=== PATIENT | female | born 1955 | race American Indian/Alaskan Native ===

== ENCOUNTER 2016-07-10 15:49 | Emergency (ER) | payer OTHER ==
[2016-07-10] MEDS ORDERED: NACL 0.9% 1000 ML 1,000 ML IV ONE (16:14)
[2016-07-10 16:40] LABS: Basophils % (Auto) 0.8 % (0.0-1.8); Eosinophils % (Auto) 2.9 % (0.0-4.3); Hematocrit 42.1 % (30.3-42.9); Hemoglobin 13.4 gm/dl (10.1-14.3); Mean Corpuscular HGB Conc 32 % (30-34); Mean Corpuscular Volume 79 fl (79-97); Platelet Count 178 K/mm3 (140-440); Red Blood Count 5.33 M/mm3 (3.65-5.03); Red Cell Distribution Width 13.3 % (13.2-15.2); White Blood Count 10.8 K/mm3 (4.5-11.0)
[2016-07-10 16:46] LABS: INR 2.69 (0.87-1.13)
[2016-07-10 16:47] LABS: Partial Thromboplastin Time 43.7 Sec. (24.2-36.6)
[2016-07-10 16:54] LABS: Alanine Aminotransferase 15 units/L (7-56); Albumin 3.8 g/dL (3.9-5); Alkaline Phosphatase 98 units/L (35-129); Anion Gap 20 mmol/L; BUN/Creatinine Ratio 18.33; Blood Urea Nitrogen 11 mg/dL (7-17); Calcium 9.4 mg/dL (8.4-10.2); Carbon Dioxide 24 mmol/L (22-30); Chloride 99.9 mmol/L (98-107); Glucose 127 mg/dL (65-100); Lipase 19 units/L (13-60); Mean Corpuscular Hemoglobin 25 pg (28-32); Potassium 3.5 mmol/L (3.6-5.0); Sodium 140 mmol/L (137-145); Total Protein 7.8 g/dL (6.3-8.2)
[2016-07-10 17:50] VITALS: BP 127/79
--- NOTE | 2016-07-10 18:04 | Emergency Department Report ---
HPI - General Chief Complaint: GI Bleed Time Seen by Provider: 07/10/16 17:47 - HPI HPI: This is a 60-year-old Afro-Citizen Of [place] female presents to the emergency department with a 4-5 day history of lower abdominal discomfort and possibly some black stool. The patient is on Coumadin for a previous history of stroke. She was given a stool guaiac testing car to do at home by her primary care doctor, Dr. Mancia, but she says that she "messed it up." She otherwise is not sure whether it is bleeding but she does have dark stool. 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 She also has a past medical history of CHF, hypertension, high cholesterol and has a previous surgical history of a hysterectomy. ED Past Medical Hx - Past Medical History Previous Medical History?: Yes Hx Hypertension: Yes Hx CVA: Yes (left side weakness per pt) Hx Heart Attack/AMI: No Hx Congestive Heart Failure: Yes Hx Diabetes: No Hx Deep Vein Thrombosis: (Unknown) Hx Pulmonary Embolism: No Hx GERD: No Hx Liver Disease: No Hx Renal Disease: No Hx Sickle Cell Disease: No Hx Arthritis: Yes Hx Headaches / Migraines: No Hx Seizures: No Hx Kidney Stones: No Hx Asthma: No Hx COPD: No Hx Tuberculosis: No Hx Dementia: No Hx HIV: No Additional medical history: Hypercholesterolemia - Surgical History Past Surgical History?: Yes Hx Coronary Stent: No Hx Open Heart Surgery: No Hx Pacemaker: No Hx Internal Defibrillator: No Hx Cholecystectomy: No Hx Appendectomy: No Hx Breast Surgery: No Additional Surgical History: hysterectomy - Social History Smoking Status: Former Smoker Substance Use Type: Alcohol, Prescribed - Medications Home Medications: Home Medications Medication Instructions Recorded Confirmed Last Taken Type Zolpidem Tartrate [Ambien] 10 mg PO QHS #15 tablet NS 05/06/14 07/10/16 Unknown Rx AtorvaSTATin [Lipitor] 40 mg PO QDAY 07/10/16 07/10/16 Unknown History Cyclobenzaprine HCl [Flexeril 5 MG 5 mg PO TID PRN 07/10/16 07/10/16 Unknown History TAB] Docusate Sodium [Colace CAP] 100 mg PO BID PRN 07/10/16 07/10/16 Unknown History Losartan/Hydrochlorothiazide 1 tab PO QDAY 07/10/16 07/10/16 Unknown History [Losartan-Hctz 100-25 mg Tab] Omeprazole Magnesium [PriLOSEC Otc] 20 mg PO QDAY #20 tablet. 07/10/16 Unknown Rx Quetiapine Fumarate [Seroquel] 100 mg PO QHS 07/10/16 07/10/16 Unknown History Warfarin [Coumadin] 5 mg PO TID 07/10/16 07/10/16 Unknown History amLODIPine [Norvasc] 5 mg PO QDAY 07/10/16 07/10/16 Unknown History glipiZIDE [Glucotrol] 5 mg PO QDAY 07/10/16 07/10/16 Unknown History levETIRAcetam [Keppra TAB] 500 mg PO BID 07/10/16 07/10/16 Unknown History ED Review of Systems ROS: Stated complaint: BLOOD IN STOOL/SENT BY PHYS. Other details as noted in HPI Comment: All other systems reviewed and negative Constitutional: denies: chills, fever Eyes: denies: eye pain, eye discharge, vision change ENT: denies: ear pain, throat pain Respiratory: denies: cough, shortness of breath, wheezing Cardiovascular: denies: chest pain, palpitations Gastrointestinal: abdominal pain, melena. denies: nausea, vomiting Genitourinary: denies: urgency, dysuria, discharge Musculoskeletal: denies: back pain, joint swelling, arthralgia Skin: denies: rash, lesions Neurological: denies: headache, weakness, paresthesias Physical Exam - Physical Exam Vital Signs: Vital Signs 07/10/16 07/10/16 16:08 17:49 Temperature 97.4 F L 98.4 F Pulse Rate 105 H 100 H Respiratory 20 18 Rate Blood Pressure 145/96 Blood Pressure 127/79 [Left] O2 Sat by Pulse 93 100 Oximetry Physical Exam: GENERAL: The patient is well-developed well-nourished. HEENT: Normocephalic. Atraumatic. Extraocular motions are intact. Patient has moist mucous membranes. NECK: Supple. Trachea is midline. CHEST/LUNGS: Clear to auscultation. There is no respiratory distress noted. HEART/CARDIOVASCULAR: Regular. There is no tachycardia. There is no gallop rub or murmur. ABDOMEN: Abdomen is soft, nontender. Patient has normal bowel sounds. There is no abdominal distention. Obese habitus. SKIN: Skin is warm and dry. NEURO: The patient is awake, alert, and oriented. The patient is cooperative. The patient has no focal neurologic deficits. The patient has normal speech. MUSCULOSKELETAL: There is no tenderness or deformity. There is no limitation range of motion. There is no evidence of acute injury. RECTAL: There is some nonthrombosed external hemorrhoids. No palpable internal hemorrhoids or mass. No gross blood seen. There is some dark stool but it is negative on guaiac testing. ED Course Vital Signs 07/10/16 07/10/16 16:08 17:49 Temperature 97.4 F L 98.4 F Pulse Rate 105 H 100 H Respiratory 20 18 Rate Blood Pressure 145/96 Blood Pressure 127/79 [Left] O2 Sat by Pulse 93 100 Oximetry ED Medical Decision Making - Lab Data Result diagrams: 07/10/16 16:18 07/10/16 16:18 - Radiology Data Radiology results: report reviewed CT of the abdomen and pelvis with IV contrast does not show any acute process. No intestinal or urinary tract obstruction. - Medical Decision Making 60-year-old female presents with a 4 to five-day history of dark stool. She occasionally has some lower abdominal discomfort. Labs are unremarkable. She is therapeutic with her INR. No signs of infection. Normal belly labs. Patient does not appear in any distress on physical examination. She did have some mild dark stool but it was negative on guaiac testing. Vital signs stable throughout ED course. Patient consistently asking for discharge to home. I do not see a reason why the patient would require admission at this time. She already has a wind operations manager and has been told she needs a colonoscopy but she may need an endoscopy as well. She has been encouraged to return to the ER with any worsening of her symptoms or any acute distress. - Differential Diagnosis gastritis, diverticulosis, gastric ulcer, duodenal ulcer Critical Care Time: No Critical care attestation.: If time is entered above; I have spent that time in minutes in the direct care of this critically ill patient, excluding procedure time. ED Disposition Clinical Impression: Rectal bleeding Disposition: DISCHARGED TO HOME OR SELFCARE Is pt being admited?: No Condition: Good Instructions: Rectal Bleeding (ED) Additional Instructions: Please follow-up with your wind operations manager as you may need a endoscopy or colonoscopy in the near future. Return to the emergency department with any worsening of your symptoms or any acute distress. Prescriptions: Omeprazole Magnesium [PriLOSEC Otc] 20 mg PO QDAY #20 tablet. Referrals: PRIMARY CARE, [Primary Care Provider] - 3-5 Days Time of Disposition: 21:40
--- NOTE | 2016-07-10 21:17 | Cat Scan Report ---
FINAL REPORT EXAM: CT ABDOMEN PELVIS W CON HISTORY: Abd Pain TECHNIQUE: CT abdomen and pelvis with intravenous contrast PRIORS: None. FINDINGS: No acute abnormality identified in the lung bases. No focal abnormality identified within the liver parenchyma. The spleen demonstrates normal size and attenuation. No pancreatic abnormalities seen. The kidneys demonstrate symmetric contrast enhancement. No evidence of hydronephrosis. The adrenal glands are unremarkable Abdominal aorta is normal in caliber. No pathologically enlarged lymph nodes are identified. No signs of free fluid or free air No evidence of small bowel dilatation. Colon is nondistended. No pericolonic inflammatory change. The appendix is not definitively identified there are no acute inflammatory changes in right lower quadrant. Urinary bladder is unremarkable. IMPRESSION: Negative. No acute abnormalities seen
== END 2016-07-10 22:12 | disposition home or self-care (01) ==
LOC: ED 15:49
DX: K62.5 Hemorrhage of anus and rectum (principal); I10 Essential (primary) hypertension; I50.9 Heart failure, unspecified
CPT/HCPCS: 36415; 74177; 80053; 83690; 85025; 85610; 85730; 86850; 86900; 86901; 93005; 93010; 96360; 96361; 99284; J7030; Q9967

== ENCOUNTER 2016-07-19 14:53 | Emergency (ER) | payer OTHER ==
[2016-07-19 15:33] VITALS: BP 108/81
[2016-07-19] MEDS ORDERED: NORCO 5/325 PO ONE (17:18)
--- NOTE | 2016-07-19 18:20 | Emergency Department Report ---
Entered by BREN FRY, acting as scribe for TRISTA ORDONEZ NP. ED Lower Extremity HPI - General Chief Complaint: Extremity Injury, Lower Stated Complaint: PAIN IN BOTH LEGS Time Seen by Provider: 07/19/16 16:56 Source: patient Mode of arrival: Wheelchair Limitations: No Limitations - History of Present Illness Initial Comments: 60 y/o female with PMHx of arthritis, CHF, CVA, DVT, and HTN, presents to the ED c/o chronic bilateral leg pain. Associated symptoms include leg pain but she denies fever and chills. Patient states she has bone on bone and that she was getting steroid shots in the knees previously. Denies fall or injury. No aggravating factors and no alleviating despite taking flexeril. NKDA. ALAMO Complaint: leg injury Injury: Leg: Left, Right, Knee: Right, Left (mostly on righ knee) Place: home Severity: mild Improves With: nothing Worsens With: nothing Associated Symptoms: other (leg pain and knee pain but bi fever and no chills ) - Related Data Home Medications Medication Instructions Recorded Confirmed Last Taken AtorvaSTATin [Lipitor] 40 mg PO QDAY 07/10/16 07/10/16 Unknown Cyclobenzaprine HCl [Flexeril 5 MG 5 mg PO TID PRN 07/10/16 07/10/16 Unknown TAB] Docusate Sodium [Colace CAP] 100 mg PO BID PRN 07/10/16 07/10/16 Unknown Losartan/Hydrochlorothiazide 1 tab PO QDAY 07/10/16 07/10/16 Unknown [Losartan-Hctz 100-25 mg Tab] Quetiapine Fumarate [Seroquel] 100 mg PO QHS 07/10/16 07/10/16 Unknown Warfarin [Coumadin] 5 mg PO TID 07/10/16 07/10/16 Unknown amLODIPine [Norvasc] 5 mg PO QDAY 07/10/16 07/10/16 Unknown glipiZIDE [Glucotrol] 5 mg PO QDAY 07/10/16 07/10/16 Unknown levETIRAcetam [Keppra TAB] 500 mg PO BID 07/10/16 07/10/16 Unknown Previous Rx's Medication Instructions Recorded Last Taken Type Zolpidem Tartrate [Ambien] 10 mg PO QHS #15 tablet NS 05/06/14 Unknown Rx Omeprazole Magnesium [PriLOSEC Otc] 20 mg PO QDAY #20 tablet. 07/10/16 Unknown Rx Acetaminophen/Codeine [Tylenol 1 tab PO Q8HR PRN #30 tab 07/19/16 Unknown Rx /Codeine # 3 tab] Diclofenac Sodium [Voltaren] 100 gm TP TID PRN #1 tube 07/19/16 Unknown Rx Allergies Allergy/AdvReac Type Severity Reaction Status Date / Time No Known Allergies Allergy Verified 08/04/15 19:13 ED Review of Systems Comment: All other systems reviewed and negative Constitutional: denies: chills, fever Musculoskeletal: other (knee pain and leg pain) ED Past Medical Hx - Past Medical History Hx Hypertension: Yes Hx CVA: Yes (left side weakness per pt) Hx Heart Attack/AMI: No Hx Congestive Heart Failure: Yes Hx Diabetes: No Hx Deep Vein Thrombosis: (Unknown) Hx Pulmonary Embolism: No Hx GERD: No Hx Liver Disease: No Hx Renal Disease: No Hx Sickle Cell Disease: No Hx Arthritis: Yes Hx Headaches / Migraines: No Hx Seizures: No Hx Kidney Stones: No Hx Asthma: No Hx COPD: No Hx Tuberculosis: No Hx Dementia: No Hx HIV: No Additional medical history: Hypercholesterolemia. chronic knee pain - Surgical History Past Surgical History?: Yes Hx Coronary Stent: No Hx Open Heart Surgery: No Hx Pacemaker: No Hx Internal Defibrillator: No Hx Cholecystectomy: No Hx Appendectomy: No Hx Breast Surgery: No Additional Surgical History: hysterectomy - Social History Smoking Status: Never Smoker Substance Use Type: None - Medications Home Medications: Home Medications Medication Instructions Recorded Confirmed Last Taken Type Zolpidem Tartrate [Ambien] 10 mg PO QHS #15 tablet NS 05/06/14 07/10/16 Unknown Rx AtorvaSTATin [Lipitor] 40 mg PO QDAY 07/10/16 07/10/16 Unknown History Cyclobenzaprine HCl [Flexeril 5 MG 5 mg PO TID PRN 07/10/16 07/10/16 Unknown History TAB] Docusate Sodium [Colace CAP] 100 mg PO BID PRN 07/10/16 07/10/16 Unknown History Losartan/Hydrochlorothiazide 1 tab PO QDAY 07/10/16 07/10/16 Unknown History [Losartan-Hctz 100-25 mg Tab] Omeprazole Magnesium [PriLOSEC Otc] 20 mg PO QDAY #20 tablet. 07/10/16 Unknown Rx Quetiapine Fumarate [Seroquel] 100 mg PO QHS 07/10/16 07/10/16 Unknown History Warfarin [Coumadin] 5 mg PO TID 07/10/16 07/10/16 Unknown History amLODIPine [Norvasc] 5 mg PO QDAY 07/10/16 07/10/16 Unknown History glipiZIDE [Glucotrol] 5 mg PO QDAY 07/10/16 07/10/16 Unknown History levETIRAcetam [Keppra TAB] 500 mg PO BID 07/10/16 07/10/16 Unknown History Acetaminophen/Codeine [Tylenol 1 tab PO Q8HR PRN #30 tab 07/19/16 Unknown Rx /Codeine # 3 tab] Diclofenac Sodium [Voltaren] 100 gm TP TID PRN #1 tube 07/19/16 Unknown Rx ED Physical Exam - General Limitations: No Limitations General appearance: alert, in no apparent distress - Head Head exam: Present: atraumatic, normocephalic, normal inspection - Eye Eye exam: Present: normal appearance, EOMI Pupils: Present: normal accommodation - ENT ENT exam: Present: normal exam - Neck Neck exam: Present: normal inspection, full ROM - Respiratory Respiratory exam: Present: normal lung sounds bilaterally. Absent: wheezes, rales, rhonchi - Cardiovascular Cardiovascular Exam: Present: regular rate, normal rhythm, normal heart sounds. Absent: rubs, gallop - GI/Abdominal GI/Abdominal exam: Present: soft, normal bowel sounds. Absent: tenderness, guarding, rebound - Expanded Lower Extremity Exam Right Knee exam: Present: pain w/ pronation/supination, full knee extension. Absent: tenderness, swelling, abrasion, laceration, ecchymosis, deformity, crepidus, dislocation, erythema, effusion, posterior draw sign Neuro vascular tendon exam: Absent: pulse deficit, abnormal cap refill, motor deficit, sensory deficit, tendon deficit, pallor Gait: Positive: observed and limited by pain - Back Exam Back exam: Present: normal inspection, full ROM - Neurological Exam Neurological exam: Present: alert, oriented X3 - Psychiatric Psychiatric exam: Present: normal affect, normal mood - Skin Skin exam: Present: warm, dry, intact ED Course Vital Signs 07/19/16 07/19/16 15:29 17:21 Temperature 97.7 F Pulse Rate 102 H Respiratory 18 16 Rate Blood Pressure 108/81 O2 Sat by Pulse 95 Oximetry ED Lower Extremity MDM - Medical Decision Making pt is a 60 y/o aaf with hx of chronic bilat knee pain , pt denies fall injury or trauma , pt requesting referral to orthopedics for evaluatoin and second opinion on knee condition or need for replacement , pt currently complaining of 5/10 bilat knee aching exacerbated by prolonged ambulation or standing, pain is improved with off loading ,exam: no erythema no edema no click no pop no catch no drawers bilat, knee joints are stable, v/s noted upon arrival to [facility] , now hr 87, 129/86, pt advises pain easing up from 5/10 to 3/10 at this time , pt is ambulatory gait remains steady with minimal limp to base line for this patient will refer to ortho Dr. Carrasquillo pt verbalized understanding and agreement with discharge plan. ED Disposition Clinical Impression: Chronic pain of both knees, Arthralgia Disposition: TO HOME OR SELFCARE Is pt being admited?: No Does the pt Need Aspirin: No Condition: Good Instructions: Arthralgia (ED), Knee Exercises (GEN) Prescriptions: Acetaminophen/Codeine [Tylenol /Codeine # 3 tab] 1 tab PO Q8HR PRN #30 tab PRN Reason: Pain Diclofenac Sodium [Voltaren] 100 gm TP TID PRN #1 tube PRN Reason: Pain Referrals: PRIMARY CAREMD [Primary Care Provider] - 3-5 Days SHAHIDA CARRASQUILLO MD [Staff Physician] - 3-5 Days Forms: Work/School Release Form(ED) Time of Disposition: 18:20 This documentation as recorded by the LISANDRA aguila ELIZABETH,accurately reflects the service I personally performed and the decisions made by me, TRISTA ORDONEZ, ABHI.
== END 2016-07-19 18:25 | disposition home or self-care (01) ==
LOC: ED 14:53
DX: M25.561 Pain in right knee (principal); M25.562 Pain in left knee; G89.29 Other chronic pain; I10 Essential (primary) hypertension; I63.9 Cerebral infarction, unspecified; I50.9 Heart failure, unspecified; M19.90 Unspecified osteoarthritis, unspecified site; E78.00 Pure hypercholesterolemia, unspecified; Z79.01 Long term (current) use of anticoagulants
CPT/HCPCS: 99283

== ENCOUNTER 2016-07-21 09:00 | Emergency (ER) | payer OTHER ==
[2016-07-21 09:31] VITALS: BP 94/66
[2016-07-21 10:10] LABS: Basophils % (Auto) 0.7 % (0.0-1.8); Eosinophils % (Auto) 3.1 % (0.0-4.3); Hematocrit 42.8 % (30.3-42.9); Hemoglobin 13.7 gm/dl (10.1-14.3); Mean Corpuscular HGB Conc 32 % (30-34); Mean Corpuscular Volume 80 fl (79-97); Red Blood Count 5.36 M/mm3 (3.65-5.03); Red Cell Distribution Width 13.7 % (13.2-15.2); White Blood Count 9.6 K/mm3 (4.5-11.0)
[2016-07-21 10:12] LABS: Mean Corpuscular Hemoglobin 26 pg (28-32)
[2016-07-21 10:18] LABS: INR 1.9 (0.87-1.13)
[2016-07-21 10:19] LABS: Partial Thromboplastin Time 38.4 Sec. (24.2-36.6)
--- NOTE | 2016-07-21 10:19 | Cat Scan Report ---
CT HEAD WITHOUT CONTRAST: HISTORY: Stroke. Moderate to large chronic infarct in the right parietal and posterior temporal lobes is unchanged since 09/04/15. Mild volume loss and moderate chronic ischemic changes in the white matter and all are unchanged. No large area of acute ischemia, hemorrhage, mass or extra axial fluid collection is identified on noncontrast CT. Ventricular size is within normal limits. The posterior fossa is unremarkable. The mastoid air cells and visualized portions of the sinuses are normal. IMPRESSION: No acute intracranial process is appreciated. Chronic findings as outlined above.
[2016-07-21 10:20] LABS: Platelet Count 150 K/mm3 (140-440)
[2016-07-21 11:03] LABS: Alanine Aminotransferase 20 units/L (7-56); Albumin 3.7 g/dL (3.9-5); Albumin/Globulin Ratio 0.9 %; Alkaline Phosphatase 115 units/L (35-129); Anion Gap 18 mmol/L; BUN/Creatinine Ratio 15.71; Blood Urea Nitrogen 11 mg/dL (7-17); Calcium 9.5 mg/dL (8.4-10.2); Carbon Dioxide 24 mmol/L (22-30); Glucose 124 mg/dL (65-100); Potassium 4.1 mmol/L (3.6-5.0); Sodium 139 mmol/L (137-145); Total Protein 7.8 g/dL (6.3-8.2)
[2016-07-21 11:05] LABS: Creatine Kinase 50 units/L (30-135)
[2016-07-21 11:19] LABS: Creatine Kinase MB < 1.0 ng/mL (0.0-4.0)
[2016-07-21 11:59] LABS: Bilirubin,Urine NEG (Negative); Blood,Urine NEG (Negative); Ketones,Urine NEG (Negative); Leukocyte Esterase,Urine NEG (Negative); Mucus,Urine FEW /HPF; Nitrite,Urine NEG (Negative); Protein,Urine <15 mg/dL mg/dL (Negative); Urobilinogen,Urine < 2.0 mg/dL (<2.0)
--- NOTE | 2016-07-21 12:14 | History and Physical Report ---
Medications and Allergies Allergies Allergy/AdvReac Type Severity Reaction Status Date / Time No Known Allergies Allergy Verified 07/21/16 09:31 Home Medications Medication Instructions Recorded Confirmed Last Taken Type Zolpidem Tartrate [Ambien] 10 mg PO QHS #15 tablet NS 05/06/14 07/10/16 Unknown Rx AtorvaSTATin [Lipitor] 40 mg PO QDAY 07/10/16 07/10/16 Unknown History Cyclobenzaprine HCl [Flexeril 5 MG 5 mg PO TID PRN 07/10/16 07/10/16 Unknown History TAB] Docusate Sodium [Colace CAP] 100 mg PO BID PRN 07/10/16 07/10/16 Unknown History Losartan/Hydrochlorothiazide 1 tab PO QDAY 07/10/16 07/10/16 Unknown History [Losartan-Hctz 100-25 mg Tab] Omeprazole Magnesium [PriLOSEC Otc] 20 mg PO QDAY #20 tablet. 07/10/16 Unknown Rx Quetiapine Fumarate [Seroquel] 100 mg PO QHS 07/10/16 07/10/16 Unknown History Warfarin [Coumadin] 5 mg PO TID 07/10/16 07/10/16 Unknown History amLODIPine [Norvasc] 5 mg PO QDAY 07/10/16 07/10/16 Unknown History glipiZIDE [Glucotrol] 5 mg PO QDAY 07/10/16 07/10/16 Unknown History levETIRAcetam [Keppra TAB] 500 mg PO BID 07/10/16 07/10/16 Unknown History Acetaminophen/Codeine [Tylenol 1 tab PO Q8HR PRN #30 tab 07/19/16 Unknown Rx /Codeine # 3 tab] Diclofenac Sodium [Voltaren] 100 gm TP TID PRN #1 tube 07/19/16 Unknown Rx Exam - Constitutional Vitals: Temp Pulse Resp BP Pulse Ox 98.1 F 93 H 28 H 94/66 98 07/21/16 09:00 07/21/16 09:00 07/21/16 09:00 07/21/16 09:00 07/21/16 10:08 Results - Labs CBC & Chem 7: 07/21/16 09:48 07/21/16 09:48 Labs: Abnormal lab results 07/21/16 07/21/16 07/21/16 Range/Units 09:48 09:48 09:48 RBC 5.36 H (3.65-5.03) M/mm3 MCH 26 L (28-32) pg [place] % (Auto) 8.3 H (0.0-7.3) % PT 21.8 H (12.2-14.9) Sec. INR 1.90 H (0.87-1.13) APTT 38.4 H (24.2-36.6) Sec. Glucose 124 H (65-100) mg/dL Albumin 3.7 L (3.9-5) g/dL
--- NOTE | 2016-07-21 12:59 | Emergency Department Report ---
ED General Adult HPI - General Chief complaint: Neuro Symptoms/Deficit Stated complaint: POSS STROKE Time Seen by Provider: 07/21/16 09:40 Source: patient Mode of arrival: Stretcher Limitations: No Limitations - History of Present Illness Initial comments: The patient presents via private vehicle for evaluation of headache, chest pain after she states that she felt like she was going to pass out at jainism. She states that she did not fall and did not hurt herself. She told triage she is having some left sided chest pain intermittently recently but this has not related to her event today. Initially she stated her chief complaint was a right sided headache associated with the concern about stroke. She states that she had a stroke in 2013 which was associated with a headache. She was actually admitted here in August 2015. At that time the patient's MRI showed chronic ischemia in the right posterior temporal region and small vessel disease. Patient denied any focal weakness or numbness. She stated that she was having some difficulty with speech today however. She doesn't describe any difficulty with her coordination or gait. She denied any change in vision. -: Gradual Location: head Radiation: non-radiation Quality: aching Consistency: intermittent, now resolved Improves with: none Worsens with: none Associated Symptoms: chest pain, other (headache and presyncopal episode) - Related Data Home Medications Medication Instructions Recorded Confirmed Last Taken AtorvaSTATin [Lipitor] 40 mg PO QDAY 07/10/16 07/10/16 Unknown Cyclobenzaprine HCl [Flexeril 5 MG 5 mg PO TID PRN 07/10/16 07/10/16 Unknown TAB] Docusate Sodium [Colace CAP] 100 mg PO BID PRN 07/10/16 07/10/16 Unknown Losartan/Hydrochlorothiazide 1 tab PO QDAY 07/10/16 07/10/16 Unknown [Losartan-Hctz 100-25 mg Tab] Quetiapine Fumarate [Seroquel] 100 mg PO QHS 07/10/16 07/10/16 Unknown Warfarin [Coumadin] 5 mg PO TID 07/10/16 07/10/16 Unknown amLODIPine [Norvasc] 5 mg PO QDAY 07/10/16 07/10/16 Unknown glipiZIDE [Glucotrol] 5 mg PO QDAY 07/10/16 07/10/16 Unknown levETIRAcetam [Keppra TAB] 500 mg PO BID 07/10/16 07/10/16 Unknown Previous Rx's Medication Instructions Recorded Last Taken Type Zolpidem Tartrate [Ambien] 10 mg PO QHS #15 tablet NS 05/06/14 Unknown Rx Omeprazole Magnesium [PriLOSEC Otc] 20 mg PO QDAY #20 tablet. 07/10/16 Unknown Rx Acetaminophen/Codeine [Tylenol 1 tab PO Q8HR PRN #30 tab 07/19/16 Unknown Rx /Codeine # 3 tab] Diclofenac Sodium [Voltaren] 100 gm TP TID PRN #1 tube 07/19/16 Unknown Rx Allergies Allergy/AdvReac Type Severity Reaction Status Date / Time No Known Allergies Allergy Verified 07/21/16 09:31 ED Review of Systems ROS: Stated complaint: POSS STROKE Other details as noted in HPI ED Past Medical Hx - Past Medical History Hx Hypertension: Yes Hx CVA: Yes (left side weakness per pt) Hx Heart Attack/AMI: No Hx Congestive Heart Failure: Yes Hx Diabetes: No Hx Deep Vein Thrombosis: (Unknown) Hx Pulmonary Embolism: No Hx GERD: No Hx Liver Disease: No Hx Renal Disease: No Hx Sickle Cell Disease: No Hx Arthritis: Yes Hx Headaches / Migraines: No Hx Seizures: No Hx Kidney Stones: No Hx Asthma: No Hx COPD: No Hx Tuberculosis: No Hx Dementia: No Hx HIV: No Additional medical history: Hypercholesterolemia. chronic knee pain - Surgical History Hx Coronary Stent: No Hx Open Heart Surgery: No Hx Pacemaker: No Hx Internal Defibrillator: No Hx Cholecystectomy: No Hx Appendectomy: No Hx Breast Surgery: No Additional Surgical History: hysterectomy - Social History Smoking Status: Never Smoker Substance Use Type: None - Medications Home Medications: Home Medications Medication Instructions Recorded Confirmed Last Taken Type Zolpidem Tartrate [Ambien] 10 mg PO QHS #15 tablet NS 05/06/14 07/10/16 Unknown Rx AtorvaSTATin [Lipitor] 40 mg PO QDAY 07/10/16 07/10/16 Unknown History Cyclobenzaprine HCl [Flexeril 5 MG 5 mg PO TID PRN 07/10/16 07/10/16 Unknown History TAB] Docusate Sodium [Colace CAP] 100 mg PO BID PRN 07/10/16 07/10/16 Unknown History Losartan/Hydrochlorothiazide 1 tab PO QDAY 07/10/16 07/10/16 Unknown History [Losartan-Hctz 100-25 mg Tab] Omeprazole Magnesium [PriLOSEC Otc] 20 mg PO QDAY #20 tablet. 07/10/16 Unknown Rx Quetiapine Fumarate [Seroquel] 100 mg PO QHS 07/10/16 07/10/16 Unknown History Warfarin [Coumadin] 5 mg PO TID 07/10/16 07/10/16 Unknown History amLODIPine [Norvasc] 5 mg PO QDAY 07/10/16 07/10/16 Unknown History glipiZIDE [Glucotrol] 5 mg PO QDAY 07/10/16 07/10/16 Unknown History levETIRAcetam [Keppra TAB] 500 mg PO BID 07/10/16 07/10/16 Unknown History Acetaminophen/Codeine [Tylenol 1 tab PO Q8HR PRN #30 tab 07/19/16 Unknown Rx /Codeine # 3 tab] Diclofenac Sodium [Voltaren] 100 gm TP TID PRN #1 tube 07/19/16 Unknown Rx ED Physical Exam - General Limitations: No Limitations General appearance: alert, in no apparent distress - Head Head exam: Present: atraumatic, normocephalic - Eye Eye exam: Present: normal appearance, PERRL, EOMI. Absent: scleral icterus - ENT ENT exam: Present: mucous membranes moist - Neck Neck exam: Present: normal inspection, other (carotids without bruit). Absent: tenderness, meningismus - Respiratory Respiratory exam: Present: normal lung sounds bilaterally. Absent: respiratory distress - Cardiovascular Cardiovascular Exam: Present: regular rate, normal rhythm. Absent: systolic murmur, diastolic murmur, rubs, gallop - GI/Abdominal GI/Abdominal exam: Present: soft, normal bowel sounds. Absent: distended, tenderness, guarding, rebound, rigid - Extremities Exam Extremities exam: Present: normal inspection, full ROM, normal capillary refill. Absent: tenderness, pedal edema, joint swelling, calf tenderness - Back Exam Back exam: Present: normal inspection - Neurological Exam Neurological exam: Present: alert, oriented X3, CN II-XII intact, normal gait, other (patient's patient was a bit stuttering but did not seem to be otherwise dysarthric. There was no aphasia.). Absent: motor sensory deficit - Psychiatric Psychiatric exam: Present: anxious, flat affect - Skin Skin exam: Present: warm, dry, intact, normal color. Absent: rash ED Course Vital Signs 07/21/16 07/21/16 09:00 10:08 Temperature 98.1 F Pulse Rate 93 H Respiratory 28 H Rate Blood Pressure 94/66 Blood Pressure 94/66 [Left] O2 Sat by Pulse 98 98 Oximetry - Reevaluation(s) Reevaluation #1: The patient was referred to Dr. Traylor. He did see and examine the patient. He told the patient that he would admit her to the hospital for further care and evaluation. However, later we were informed that the patient eloped without informing the nurse or physician. 07/21/16 14:34 ED Medical Decision Making - Lab Data Result diagrams: 07/21/16 09:48 07/21/16 09:48 Laboratory Results - last 24 hr 07/21/16 07/21/16 07/21/16 09:48 09:48 09:48 WBC 9.6 RBC 5.36 H Hgb 13.7 Hct 42.8 MCV 80 MCH 26 L MCHC 32 RDW 13.7 Plt Count 150 Lymph % (Auto) 25.2 [place] % (Auto) 8.3 H Eos % (Auto) 3.1 Baso % (Auto) 0.7 Lymph # 2.4 [place] # 0.8 Eos # 0.3 Baso # 0.1 Seg Neutrophils % 62.7 Seg Neutrophils # 6.0 PT 21.8 H INR 1.90 H APTT 38.4 H Thrombin Time 18.9 Sodium Potassium Chloride Carbon Dioxide Anion Gap BUN Creatinine Estimated GFR BUN/Creatinine Ratio Glucose Calcium Total Bilirubin AST ALT Alkaline Phosphatase Total Creatine Kinase 50 CK-MB (CK-2) < 1.0 CK-MB (CK-2) Rel Index 2.0 Troponin T < 0.010 Total Protein Albumin Albumin/Globulin Ratio Urine Color Urine Turbidity Urine pH Ur Specific [place] Urine Protein Urine Glucose (UA) Urine Ketones Urine Blood Urine Nitrite Urine Bilirubin Urine Urobilinogen Ur Leukocyte Esterase Urine WBC (Auto) Urine RBC (Auto) U Epithel Cells (Auto) Urine Mucus 07/21/16 07/21/16 09:48 11:18 WBC RBC Hgb Hct MCV MCH MCHC RDW Plt Count Lymph % (Auto) [place] % (Auto) Eos % (Auto) Baso % (Auto) Lymph # [place] # Eos # Baso # Seg Neutrophils % Seg Neutrophils # PT INR APTT Thrombin Time Sodium 139 Potassium 4.1 Chloride 101.0 Carbon Dioxide 24 Anion Gap 18 BUN 11 Creatinine 0.7 Estimated GFR > 60 BUN/Creatinine Ratio 15.71 Glucose 124 H Calcium 9.5 Total Bilirubin 0.20 AST 23 ALT 20 Alkaline Phosphatase 115 Total Creatine Kinase CK-MB (CK-2) CK-MB (CK-2) Rel Index Troponin T Total Protein 7.8 Albumin 3.7 L Albumin/Globulin Ratio 0.9 Urine Color Yellow Urine Turbidity Clear Urine pH 6.0 Ur Specific [place] 1.013 Urine Protein <15 mg/dl Urine Glucose (UA) Neg Urine Ketones Neg Urine Blood Neg Urine Nitrite Neg Urine Bilirubin Neg Urine Urobilinogen < 2.0 Ur Leukocyte Esterase Neg Urine WBC (Auto) 1.0 Urine RBC (Auto) 1.0 U Epithel Cells (Auto) 2.0 Urine Mucus Few - EKG Data -: EKG Interpreted by Me EKG shows normal: sinus rhythm, axis, intervals, QRS complexes, ST-T waves - EKG Data Interpretation: other (one fusion beat noted) - Radiology Data Radiology results: report reviewed interpreted by me: CT the head showed chronic changes only no acute intracranial process. Critical care attestation.: If time is entered above; I have spent that time in minutes in the direct care of this critically ill patient, excluding procedure time. ED Disposition Clinical Impression: Pre-syncope Headache Qualifiers: Headache type: unspecified Headache chronicity pattern: unspecified pattern Intractability: not intractable Qualified Code(s): R51 - Headache Chest pain Qualifiers: Chest pain type: unspecified Qualified Code(s): R07.9 - Chest pain, unspecified Disposition: ELOPED Is pt being admited?: Yes Does the pt Need Aspirin: Yes Condition: Stable Instructions: Chest Pain (ED) Referrals: PRIMARY CARE, [Primary Care Provider] - 3-5 Days Time of Disposition: 12:34
--- NOTE | 2016-07-21 14:05 | Consultation ---
History of Present Illness - Reason for Consult Consult date: 07/21/16 Requesting physician: DIANA GALDAMEZ - History of Present Illness 60 YO Female with CVA, CHF, OA, HLD presents to ED for evaluation. Pt states that she feels weak all over. Pt does not provide consistent history. Pt acknowledges chest pain, shortness of breath, leg pain, neck pain, shoulder pain , dizziness, and nearly passing out while in nondenominational this morning. Pt unable to provide detail regarding onset, duration, and quality of her symptoms. Pt seen and evaluated in ED, but pt eloped prior to initiation and completion of workup. Past History Past Medical History: heart failure, hypertension, hyperlipidemia, stroke Past Surgical History: hysterectomy Social history: . denies: smoking, alcohol abuse Family history: diabetes, hypertension Medications and Allergies Allergies Allergy/AdvReac Type Severity Reaction Status Date / Time No Known Allergies Allergy Verified 07/21/16 09:31 Home Medications Medication Instructions Recorded Confirmed Last Taken Type Zolpidem Tartrate [Ambien] 10 mg PO QHS #15 tablet NS 05/06/14 07/10/16 Unknown Rx AtorvaSTATin [Lipitor] 40 mg PO QDAY 07/10/16 07/10/16 Unknown History Cyclobenzaprine HCl [Flexeril 5 MG 5 mg PO TID PRN 07/10/16 07/10/16 Unknown History TAB] Docusate Sodium [Colace CAP] 100 mg PO BID PRN 07/10/16 07/10/16 Unknown History Losartan/Hydrochlorothiazide 1 tab PO QDAY 07/10/16 07/10/16 Unknown History [Losartan-Hctz 100-25 mg Tab] Omeprazole Magnesium [PriLOSEC Otc] 20 mg PO QDAY #20 tablet. 07/10/16 Unknown Rx Quetiapine Fumarate [Seroquel] 100 mg PO QHS 07/10/16 07/10/16 Unknown History Warfarin [Coumadin] 5 mg PO TID 07/10/16 07/10/16 Unknown History amLODIPine [Norvasc] 5 mg PO QDAY 07/10/16 07/10/16 Unknown History glipiZIDE [Glucotrol] 5 mg PO QDAY 07/10/16 07/10/16 Unknown History levETIRAcetam [Keppra TAB] 500 mg PO BID 07/10/16 07/10/16 Unknown History Acetaminophen/Codeine [Tylenol 1 tab PO Q8HR PRN #30 tab 07/19/16 Unknown Rx /Codeine # 3 tab] Diclofenac Sodium [Voltaren] 100 gm TP TID PRN #1 tube 07/19/16 Unknown Rx Review of Systems All systems: negative Constitutional: weakness, chronic pain Cardiovascular: chest pain Exam - Constitutional Vitals: Temp Pulse Resp BP Pulse Ox 98.1 F 93 H 28 H 94/66 98 07/21/16 09:00 07/21/16 09:00 07/21/16 09:00 07/21/16 09:00 07/21/16 10:08 General appearance: Present: obese - EENT Eyes: Present: PERRL ENT: hearing intact, clear oral mucosa - Neck Neck: Present: supple, normal ROM - Respiratory Respiratory effort: normal Respiratory: bilateral: CTA - Cardiovascular Heart Sounds: Present: S1 & S2. Absent: rub, click - Extremities Extremities: pulses symmetrical, No edema Peripheral Pulses: within normal limits - Abdominal General gastrointestinal: Present: soft, non-tender, non-distended, normal bowel sounds Female genitourinary: Present: normal - Integumentary Integumentary: Present: clear, warm, dry - Musculoskeletal Musculoskeletal: gait normal, strength equal bilaterally - Psychiatric Psychiatric: appropriate mood/affect, intact judgment & insight - Neurologic Neurologic: CNII-XII intact, moves all extremities Results - Labs CBC & Chem 7: 07/21/16 09:48 07/21/16 09:48 Labs: Abnormal lab results 07/21/16 07/21/16 07/21/16 Range/Units 09:48 09:48 09:48 RBC 5.36 H (3.65-5.03) M/mm3 MCH 26 L (28-32) pg [place] % (Auto) 8.3 H (0.0-7.3) % PT 21.8 H (12.2-14.9) Sec. INR 1.90 H (0.87-1.13) APTT 38.4 H (24.2-36.6) Sec. Glucose 124 H (65-100) mg/dL Albumin 3.7 L (3.9-5) g/dL Assessment and Plan - Patient Problems (1) Atypical chest pain Current Visit: Yes Status: Acute Plan to address problem: Pt left eloped prior to workup completion (2) CHF (congestive heart failure) Current Visit: Yes Status: Chronic Qualifiers: Congestive heart failure type: C Congestive heart failure chronicity: C Plan to address problem: Pt eloped (3) Obesity Current Visit: Yes Status: Acute Qualifiers: Obesity type: O Obesity severity: O Plan to address problem: Pt counseled, (4) DVT prophylaxis Current Visit: Yes Status: Acute
[2016-07-21] MEDS ORDERED: BABY ASPIRIN PO ONE (14:36)
== END 2016-07-21 14:00 | disposition left against medical advice (07) ==
LOC: ED 09:00
DX: R55 Syncope and collapse (principal); R07.9 Chest pain, unspecified; I10 Essential (primary) hypertension; I50.9 Heart failure, unspecified
CPT/HCPCS: 36415; 70450; 80053; 81001; 82550; 82553; 84484; 85025; 85610; 85670; 85730; 93005; 93010; 99284

== ENCOUNTER 2016-07-24 16:03 | Emergency (ER) | payer OTHER ==
--- NOTE | 2016-07-24 19:20 | Cat Scan Report ---
FINAL REPORT EXAM: CT HEAD/BRAIN WO CON HISTORY: INCOHERENT EPISODES/ FALLS / HEADACHE TECHNIQUE: Noncontrast CT axial images of the brain. PRIORS: None. FINDINGS: No parenchymal mass, hemorrhage, midline shift or hydrocephalus. No evidence of acute cortical infarct. No abnormal, extra-axial fluid or air collection. Patchy low density in the periventricular and subcortical white matter is nonspecific, but may relate to chronic small vessel ischemic change. Focal encephalomalacia in the right frontoparietal region suggesting old ischemic change or infarct. Age related volume loss. Osseous calvarium grossly intact. IMPRESSION: 1. No acute intracranial findings. 2. Chronic ischemic and atrophic changes.
[2016-07-24 19:33] LABS: Basophils % (Auto) 0.6 % (0.0-1.8); Eosinophils % (Auto) 2.8 % (0.0-4.3); Hematocrit 43.5 % (30.3-42.9); Hemoglobin 13.8 gm/dl (10.1-14.3); Mean Corpuscular HGB Conc 32 % (30-34); Mean Corpuscular Hemoglobin 25 pg (28-32); Mean Corpuscular Volume 80 fl (79-97); Platelet Count 162 K/mm3 (140-440); Red Blood Count 5.46 M/mm3 (3.65-5.03); Red Cell Distribution Width 13.6 % (13.2-15.2); White Blood Count 12.9 K/mm3 (4.5-11.0)
[2016-07-24 19:42] LABS: INR 2.43 (0.87-1.13)
[2016-07-24 19:43] LABS: Partial Thromboplastin Time 43.6 Sec. (24.2-36.6)
[2016-07-24 19:52] LABS: Anion Gap 20 mmol/L; BUN/Creatinine Ratio 21.25; Blood Urea Nitrogen 17 mg/dL (7-17); Calcium 9.2 mg/dL (8.4-10.2); Carbon Dioxide 27 mmol/L (22-30); Chloride 99.5 mmol/L (98-107); Glucose 99 mg/dL (65-100); Potassium 4.2 mmol/L (3.6-5.0); Sodium 142 mmol/L (137-145)
[2016-07-25 02:01] VITALS: BP 147/107
[2016-07-25] MEDS ORDERED: MORPHINE IM ONE (02:21)
[2016-07-25] MEDS ORDERED: ZOFRAN IM ONE (02:21)
[2016-07-25] MEDS ORDERED: FIORICET PO ONE (02:22)
--- NOTE | 2016-07-25 02:28 | Emergency Department Report ---
HPI - General Chief Complaint: Neuro Symptoms/Deficit Time Seen by Provider: 07/25/16 02:09 - HPI HPI: Room 5 The patient is a 60-year-old female presenting with a chief complaint of headache. Patient states she is "acting weird" and wondered if she was "threatening to have a stroke." When asked what she means the patient states for the past 2 weeks she has been doing things such as driving to close 2 other cars. Patient states she gets this is driving all she is driving. Patient complains of a headache for the past 2 weeks. Patient denies any other complaints except for headache currently. The patient gives her headache score of 6/10 Location: Head Duration: 2 weeks Quality: Headache Severity: 6/10 Modifying factors: [see above] Context: [see above] Mode of transportation: [not driving] ED Past Medical Hx - Past Medical History Hx Hypertension: Yes Hx CVA: Yes (left side weakness per pt) Hx Congestive Heart Failure: Yes Hx Diabetes: Yes Hx Deep Vein Thrombosis: (Unknown) Hx GERD: Yes Hx Arthritis: Yes Hx Seizures: Yes Hx Kidney Stones: Yes Hx Psychiatric Treatment: Yes (ANXIETY) Additional medical history: Hypercholesterolemia. chronic knee pain - Surgical History Hx Appendectomy: Yes Additional Surgical History: hysterectomy. - Family History Family history: no significant - Social History Smoking Status: Never Smoker Substance Use Type: None - Medications Home Medications: Home Medications Medication Instructions Recorded Confirmed Last Taken Type Zolpidem Tartrate [Ambien] 10 mg PO QHS #15 tablet NS 05/06/14 07/10/16 Unknown Rx AtorvaSTATin [Lipitor] 40 mg PO QDAY 07/10/16 07/10/16 Unknown History Cyclobenzaprine HCl [Flexeril 5 MG 5 mg PO TID PRN 07/10/16 07/10/16 Unknown History TAB] Docusate Sodium [Colace CAP] 100 mg PO BID PRN 07/10/16 07/10/16 Unknown History Losartan/Hydrochlorothiazide 1 tab PO QDAY 07/10/16 07/10/16 Unknown History [Losartan-Hctz 100-25 mg Tab] Omeprazole Magnesium [PriLOSEC Otc] 20 mg PO QDAY #20 tablet. 07/10/16 Unknown Rx Quetiapine Fumarate [Seroquel] 100 mg PO QHS 07/10/16 07/10/16 Unknown History Warfarin [Coumadin] 5 mg PO TID 07/10/16 07/10/16 Unknown History amLODIPine [Norvasc] 5 mg PO QDAY 07/10/16 07/10/16 Unknown History glipiZIDE [Glucotrol] 5 mg PO QDAY 07/10/16 07/10/16 Unknown History levETIRAcetam [Keppra TAB] 500 mg PO BID 07/10/16 07/10/16 Unknown History Acetaminophen/Codeine [Tylenol 1 tab PO Q8HR PRN #30 tab 07/19/16 Unknown Rx /Codeine # 3 tab] Diclofenac Sodium [Voltaren] 100 gm TP TID PRN #1 tube 07/19/16 Unknown Rx Butalb/Acetamin/Caff 50-325-40 1 tab PO Q8HR PRN #10 tablet 07/25/16 Unknown Rx [Fioricet] ED Review of Systems ROS: Stated complaint: SLURRED SPEECH Other details as noted in HPI Comment: All other systems reviewed and negative Constitutional: denies: chills, fever Eyes: denies: eye pain, eye discharge, vision change ENT: denies: ear pain, throat pain Respiratory: denies: cough, shortness of breath, wheezing Cardiovascular: denies: chest pain, palpitations Endocrine: no symptoms reported Gastrointestinal: denies: abdominal pain, nausea, diarrhea Genitourinary: denies: urgency, dysuria, discharge Musculoskeletal: denies: back pain, joint swelling, arthralgia Skin: denies: rash, lesions Neurological: headache Psychiatric: denies: anxiety, depression Hematological/Lymphatic: denies: easy bleeding, easy bruising Physical Exam - Physical Exam Vital Signs: Vital Signs 07/24/16 07/25/16 07/25/16 17:07 00:10 00:20 Temperature 98.1 F Pulse Rate 108 H 91 H Respiratory 20 26 H Rate Blood Pressure 114/76 114/70 O2 Sat by Pulse 96 91 94 Oximetry 07/25/16 07/25/16 07/25/16 00:23 00:30 00:40 Temperature Pulse Rate 79 92 H 92 H Respiratory 13 17 Rate Blood Pressure 130/94 130/94 O2 Sat by Pulse 90 91 Oximetry 07/25/16 07/25/16 07/25/16 00:50 01:00 01:10 Temperature Pulse Rate 91 H 93 H 93 H Respiratory 27 H 27 H 20 Rate Blood Pressure 79/63 87/69 87/69 O2 Sat by Pulse 91 91 89 Oximetry 07/25/16 07/25/16 07/25/16 01:20 01:30 01:40 Temperature Pulse Rate 92 H 102 H 94 H Respiratory 18 17 13 Rate Blood Pressure 147/107 147/107 147/107 O2 Sat by Pulse 86 92 Oximetry 07/25/16 01:50 Temperature Pulse Rate 95 H Respiratory 15 Rate Blood Pressure 147/107 O2 Sat by Pulse Oximetry Physical Exam: GENERAL: The patient is well-developed well-nourished female lying on stretcher not appearing to be in acute distress. [] HEENT: Normocephalic. Atraumatic. Extraocular motions are intact. Patient has moist mucous membranes. NECK: Supple. Trachea midline CHEST/LUNGS: Clear to auscultation. There is no respiratory distress noted. HEART/CARDIOVASCULAR: Regular. There is no tachycardia. There is no gallop rub or murmur. ABDOMEN: Abdomen is soft, nontender. Patient has normal bowel sounds. There is no abdominal distention. SKIN: There is no rash. There is no edema. There is no diaphoresis. NEURO: The patient is awake, alert, and oriented. The patient is cooperative. Cranial nerves II through XII grossly intact, no drift. Button And Buckle Maker 5+/5 bilaterally. The patient has normal speech. Slightly decreased sensation in the left lower extremity attributed to previous CVA MUSCULOSKELETAL: There is no evidence of acute injury. ED Course Vital Signs 07/24/16 07/25/16 07/25/16 17:07 00:10 00:20 Temperature 98.1 F Pulse Rate 108 H 91 H Respiratory 20 26 H Rate Blood Pressure 114/76 114/70 O2 Sat by Pulse 96 91 94 Oximetry 07/25/16 07/25/16 07/25/16 00:23 00:30 00:40 Temperature Pulse Rate 79 92 H 92 H Respiratory 13 17 Rate Blood Pressure 130/94 130/94 O2 Sat by Pulse 90 91 Oximetry 07/25/16 07/25/16 07/25/16 00:50 01:00 01:10 Temperature Pulse Rate 91 H 93 H 93 H Respiratory 27 H 27 H 20 Rate Blood Pressure 79/63 87/69 87/69 O2 Sat by Pulse 91 91 89 Oximetry 07/25/16 07/25/16 07/25/16 01:20 01:30 01:40 Temperature Pulse Rate 92 H 102 H 94 H Respiratory 18 17 13 Rate Blood Pressure 147/107 147/107 147/107 O2 Sat by Pulse 86 92 Oximetry 07/25/16 01:50 Temperature Pulse Rate 95 H Respiratory 15 Rate Blood Pressure 147/107 O2 Sat by Pulse Oximetry ED Medical Decision Making - Lab Data Result diagrams: 07/24/16 19:02 07/24/16 19:02 Laboratory Tests 07/24/16 07/24/16 07/24/16 19:02 19:02 19:02 WBC 12.9 H RBC 5.46 H Hgb 13.8 Hct 43.5 H MCV 80 MCH 25 L MCHC 32 RDW 13.6 Plt Count 162 Lymph % (Auto) 22.4 [place] % (Auto) 7.9 H Eos % (Auto) 2.8 Baso % (Auto) 0.6 Lymph # 2.9 [place] # 1.0 H Eos # 0.4 Baso # 0.1 Seg Neutrophils % 66.3 Seg Neutrophils # 8.6 H PT 26.5 H INR 2.43 H APTT 43.6 H Thrombin Time Sodium 142 Potassium 4.2 Chloride 99.5 Carbon Dioxide 27 Anion Gap 20 BUN 17 Creatinine 0.8 Estimated GFR > 60 BUN/Creatinine Ratio 21.25 Glucose 99 POC Glucose Calcium 9.2 Troponin T < 0.010 07/24/16 07/24/16 19:02 20:47 WBC RBC Hgb Hct MCV MCH MCHC RDW Plt Count Lymph % (Auto) [place] % (Auto) Eos % (Auto) Baso % (Auto) Lymph # [place] # Eos # Baso # Seg Neutrophils % Seg Neutrophils # PT INR APTT Thrombin Time 19.2 Sodium Potassium Chloride Carbon Dioxide Anion Gap BUN Creatinine Estimated GFR BUN/Creatinine Ratio Glucose POC Glucose 101 Calcium Troponin T - EKG Data -: EKG Interpreted by K[place] EKG shows normal: sinus rhythm Rate: tachycardia (103 bpm) - EKG Data When compared to previous EKG there are: no significant change Interpretation: unchanged when compared t (07/21/2016) - Radiology Data Radiology results: report reviewed (CT head), image reviewed (CT head) CT head (read by radiologist)- no acute intracranial findings - Differential Diagnosis headache, ICH, intracranial mass, anxiety Critical care attestation.: If time is entered above; I have spent that time in minutes in the direct care of this critically ill patient, excluding procedure time. ED Disposition Clinical Impression: Headache Disposition: DC-01 TO HOME OR SELFCARE Is pt being admited?: No Does the pt Need Aspirin: No Condition: Stable Instructions: Acute Headache (ED) Additional Instructions: You should not drive or operate heavy machinery until you are seen and cleared by your primary physician and/or neurologist. Return to the emergency department immediately should you develop worsening symptoms, fever, inability to tolerate food or liquid or any other concerns. Prescriptions: Butalb/Acetamin/Caff 50-325-40 [Fioricet] 1 tab PO Q8HR PRN #10 tablet PRN Reason: Headache Referrals: KIMMY SERNA MD [Primary Care Provider] - 3-5 Days PATRICIA THOMAS MD [Staff Physician] - [facility] (Dr. Thomas is a neurologist. Please follow up with him for further evaluation)
[2016-07-25] MEDS ORDERED: MORPHINE ONE (02:39)
== END 2016-07-25 03:02 | disposition home or self-care (01) ==
LOC: ED 16:03
DX: R51 Headache (principal); I10 Essential (primary) hypertension; E11.9 Type 2 diabetes mellitus without complications; K21.9 Gastro-esophageal reflux disease without esophagitis; M19.90 Unspecified osteoarthritis, unspecified site; F41.9 Anxiety disorder, unspecified; E78.00 Pure hypercholesterolemia, unspecified; Z86.73 Personal history of transient ischemic attack (TIA), and cerebral infarction without residual deficits; Z90.710 Acquired absence of both cervix and uterus; Z79.01 Long term (current) use of anticoagulants
CPT/HCPCS: 36415; 70450; 80048; 82962; 84484; 85025; 85610; 85670; 85730; 93005; 93010; 96372; 99285; J2270; J2405

== ENCOUNTER 2017-04-03 05:58 | Day surgery (SDC) | payer OTHER ==
[2017-04-03] MEDS ORDERED: WATER FOR IRRIG STERILE ONE (07:08)
[2017-04-03] MEDS ORDERED: WATER FOR IRRIG STERILE IR ONE (07:08)
[2017-04-03] MEDS ORDERED: DIPRIVAN 10 MG/ML IV ONE ×2 (07:33)
[2017-04-03] MEDS ORDERED: NACL 0.9% 1000 ML 1,000 ML IV SCH (08:00)
--- NOTE | 2017-04-03 08:25 | Short Stay Summary ---
Short Stay Documentation Date of service: 04/03/17 - Allergies and Medications Current Medications: Allergies No Known Allergies Allergy (Verified 07/24/16 17:03) Home Medications Medication Instructions Recorded Confirmed Last Taken Type Zolpidem Tartrate [Ambien] 10 mg PO QHS #15 tablet NS 05/06/14 04/03/17 Unknown Rx AtorvaSTATin [Lipitor] 40 mg PO QDAY 07/10/16 04/03/17 04/02/17 History Cyclobenzaprine HCl [Flexeril 5 MG 5 mg PO TID PRN 07/10/16 04/03/17 Unknown History TAB] Docusate Sodium [Colace CAP] 100 mg PO BID PRN 07/10/16 04/03/17 Unknown History Losartan/Hydrochlorothiazide 1 tab PO QDAY 07/10/16 04/03/17 04/02/17 History [Losartan-Hctz 100-25 mg Tab] Omeprazole Magnesium [PriLOSEC Otc] 20 mg PO QDAY #20 tablet. 07/10/16 Unknown Rx Quetiapine Fumarate [Seroquel] 100 mg PO QHS 07/10/16 04/03/17 Unknown History Warfarin [Coumadin] 5 mg PO TID 07/10/16 04/03/17 03/30/17 History amLODIPine [Norvasc] 5 mg PO QDAY 07/10/16 04/03/17 04/02/17 History levETIRAcetam [Keppra TAB] 500 mg PO BID 07/10/16 04/03/17 04/02/17 History Acetaminophen/Codeine [Tylenol 1 tab PO Q8HR PRN #30 tab 07/19/16 04/03/17 Unknown Rx /Codeine # 3 tab] Diclofenac Sodium [Voltaren] 100 gm TP TID PRN #1 tube 07/19/16 04/03/17 Unknown Rx Butalb/Acetamin/Caff 50-325-40 1 tab PO Q8HR PRN #10 tablet 07/25/16 04/03/17 Unknown Rx [Fioricet] Active Medications Sodium Chloride (Nacl 0.9% 1000 Ml) 1,000 mls @ 50 mls/hr IV DIRECT SUMI - Brief post op/procedure progress note Date of procedure: 04/03/17 Pre-op diagnosis: Colon cancer screening Post-op diagnosis: same (1. Colon polyps 2. Diverticulosis 3. Internal hemorrhoids) Procedure: Colonoscopy with hot snare polypectomy and with cold biopsy polypectomy Anesthesia: MAC Findings: as above Surgeon: LO TREADWELL Estimated blood loss: none Pathology: list (1. Transverse colon poly 2. Rectosigmoid polyp 3. Rectal polyp ) Specimen disposition: to lab Condition: stable - Disposition Condition at discharge: Stable Disposition: DC- TO HOME OR SELFCARE Short Stay Discharge Plan Activity: no restrictions Weight Bearing Status: Full Weight Bearing Diet: regular, low salt Follow up with: KIMMY SERNA MD [Primary Care Provider] - 7 Days
[2017-04-03] MEDS ORDERED: XYLOCAINE MPF 2% ONE (09:00)
--- NOTE | 2017-04-03 09:02 | Post Anesthesia Evaluation ---
- Post Anesthesia Evaluation Patient Participated: Yes Airway Patent: Yes Stable Respiratory Function: Yes Nausea/Vomiting: No Temp > 96.8F: Yes Pain Manageable: Yes Adequeate Hydration: Yes Anesthesia Complications: No
--- NOTE | 2017-04-03 09:02 | Anesthesia Day of Surgery ---
Anesthesia Day of Surgery - Day of Surgery Patient Examined: Yes Patient H&P Reviewed: Yes Patient is NPO: Yes
[2017-04-03 09:06] VITALS: BP 96/48
--- NOTE | 2017-04-03 09:25 | Anesthesia Consultation ---
Anesthesia Consult and Med Hx Date of service: 04/03/17 - Airway Anesthetic Teeth Evaluation: Poor ROM Head & Neck: Adequate Mental/Hyoid Distance: Adequate Mallampati Class: Class II Intubation Access Assessment: Probably Good - Pulmonary Exam CTA: Yes - Cardiac Exam Cardiac Exam: RRR - Pre-Operative Health Status ASA Pre-Surgery Classification: ASA3 Proposed Anesthetic Plan: MAC - Pulmonary SOB: Yes (with exertion ) - Cardiovascular System Hx Hypertension: Yes Hx Peripheral Vascular Disease: Yes (DVT) - Central Nervous System CVA: Yes (left side weakness) - Endocrine Hx Non-Insulin Dependent Diabetes: Yes - Other Systems Hx Obesity: Yes - Additional Comments Anesthesia Medical History Comments: negative stress test 2016, EF 71%
== END 2017-04-03 05:59 | disposition home or self-care (01) ==
LOC: GIO 05:58
PROVIDERS: ATTEND Internal Medicine Gastroenterology
DX: Z12.11 Encounter for screening for malignant neoplasm of colon (principal); D12.3 Benign neoplasm of transverse colon; D12.8 Benign neoplasm of rectum; I69.954 Hemiplegia and hemiparesis following unspecified cerebrovascular disease affecting left non-dominant side; E11.9 Type 2 diabetes mellitus without complications; E66.9 Obesity, unspecified; I10 Essential (primary) hypertension; Z86.718 Personal history of other venous thrombosis and embolism; Z79.01 Long term (current) use of anticoagulants; Z79.84 Long term (current) use of oral hypoglycemic drugs; Z79.899 Other long term (current) drug therapy
CPT/HCPCS: 45380; 45385; 82962; 88305; J2704; J7030

== ENCOUNTER 2017-04-14 09:59 | Emergency (ER) | payer OTHER ==
[2017-04-14 10:49] LABS: Basophils # (Auto) 0.1 K/mm3 (0.0-0.1); Basophils % (Auto) 0.8 % (0.0-1.8); Eosinophils # (Auto) 0.3 K/mm3 (0.0-0.4); Eosinophils % (Auto) 2.9 % (0.0-4.3); Hematocrit 41.6 % (30.3-42.9); Hemoglobin 13.1 gm/dl (10.1-14.3); Lymphocytes # (Auto) 1.9 K/mm3 (1.2-5.4); Lymphocytes % (Auto) 20.9 % (13.4-35.0); Mean Corpuscular HGB Conc 32 % (30-34); Mean Corpuscular Volume 79 fl (79-97); Monocytes # (Auto) 0.8 K/mm3 (0.0-0.8); Red Blood Count 5.24 M/mm3 (3.65-5.03); Red Cell Distribution Width 13.5 % (13.2-15.2)
[2017-04-14 10:50] LABS: Mean Corpuscular Hemoglobin 25 pg (28-32)
[2017-04-14 10:59] LABS: INR 2.33 (0.87-1.13)
[2017-04-14 11:00] LABS: Partial Thromboplastin Time 46.9 Sec. (24.2-36.6)
[2017-04-14 11:04] LABS: BUN/Creatinine Ratio 10; Blood Urea Nitrogen 6 mg/dL (7-17); Calcium 9.2 mg/dL (8.4-10.2); Hemolysis Index 7
--- NOTE | 2017-04-14 11:25 | XRay Report ---
ROUTINE CHEST, TWO VIEWS: HISTORY: Shortness of breath. The trachea, heart, mediastinal contour, lung jackson and bony thorax are unremarkable. IMPRESSION: Unremarkable chest x-ray. No significant change since 09/04/15.
[2017-04-14 11:39] LABS: Mean Platelet Volume 11.6 fl (6-12); Platelet Count 138 K/mm3 (140-440)
[2017-04-14] MEDS ORDERED: LASIX IV ONE (14:58)
--- NOTE | 2017-04-14 15:02 | Emergency Department Report ---
ED Shortness of Breath HPI - General Chief Complaint: Dyspnea/Respdistress Stated Complaint: CHEST/LEG PAIN Time Seen by Provider: 04/14/17 14:46 Source: patient Mode of arrival: Wheelchair Limitations: No Limitations - History of Present Illness Initial Comments: Patient is 61 years old female history of congestive heart failure, hypertension , diabetes and CVA. Patient was recently discharged from the hospital for CHF exacerbation. Patient stated that her symptoms retain back as soon as she got home. Patient is complaining of shortness of breath, chest pain and generalized weakness. Patient stated that she has been falling a lot. Patient denied any fever, nausea or vomiting. MD Complaint: shortness of breath -: days(s) Severity: moderate Worsens With: lying flat, exertion Known History Of: congestive heart failure Associated Symptoms: chest pain - Related Data Home Medications Medication Instructions Recorded Confirmed Last Taken AtorvaSTATin [Lipitor] 40 mg PO QDAY 07/10/16 04/08/17 04/08/17 Cyclobenzaprine HCl [Flexeril 5 MG 5 mg PO TID PRN 07/10/16 04/08/17 Unknown TAB] Docusate Sodium [Colace CAP] 100 mg PO BID PRN 07/10/16 04/08/17 Unknown Warfarin [Coumadin] 5 mg PO DAILY 07/10/16 04/08/17 04/08/17 amLODIPine [Norvasc] 5 mg PO QDAY 07/10/16 04/08/17 04/02/17 levETIRAcetam [Keppra TAB] 500 mg PO BID 07/10/16 04/08/17 04/08/17 ALPRAZolam [Xanax] 1 mg PO TID 04/08/17 04/08/17 Unknown Previous Rx's Medication Instructions Recorded Last Taken Type Zolpidem Tartrate [Ambien] 10 mg PO QHS #15 tablet NS 05/06/14 Unknown Rx Allergies Allergy/AdvReac Type Severity Reaction Status Date / Time No Known Allergies Allergy Verified 07/24/16 17:03 ED Review of Systems ROS: Stated complaint: CHEST/LEG PAIN Other details as noted in HPI Comment: All other systems reviewed and negative Constitutional: denies: chills, fever Respiratory: orthopnea, shortness of breath, SOB with exertion, SOB at rest. denies: cough, stridor, wheezing Cardiovascular: chest pain, dyspnea on exertion, orthopnea, edema. denies: palpitations, syncope, paroxysmal nocturnal dyspnea Gastrointestinal: denies: abdominal pain, nausea, vomiting, diarrhea, constipation, hematemesis, hematochezia Musculoskeletal: denies: back pain, joint swelling Neurological: weakness. denies: headache, numbness, paresthesias, confusion ED Past Medical Hx - Past Medical History Previous Medical History?: Yes Hx Hypertension: Yes Hx CVA: Yes (left side weakness per pt) Hx Congestive Heart Failure: Yes Hx Diabetes: Yes Hx Deep Vein Thrombosis: Yes (Unknown) Hx GERD: Yes Hx Arthritis: Yes Hx Seizures: Yes Hx Kidney Stones: Yes Hx Psychiatric Treatment: Yes (ANXIETY) Hx Asthma: No Additional medical history: Hypercholesterolemia. chronic knee pain - Surgical History Past Surgical History?: Yes Hx Appendectomy: Yes Additional Surgical History: hysterectomy. - Social History Smoking Status: Never Smoker Substance Use Type: None - Medications Home Medications: Home Medications Medication Instructions Recorded Confirmed Last Taken Type Zolpidem Tartrate [Ambien] 10 mg PO QHS #15 tablet NS 05/06/14 04/08/17 Unknown Rx AtorvaSTATin [Lipitor] 40 mg PO QDAY 07/10/16 04/08/17 04/08/17 History Cyclobenzaprine HCl [Flexeril 5 MG 5 mg PO TID PRN 07/10/16 04/08/17 Unknown History TAB] Docusate Sodium [Colace CAP] 100 mg PO BID PRN 07/10/16 04/08/17 Unknown History Warfarin [Coumadin] 5 mg PO DAILY 07/10/16 04/08/17 04/08/17 History amLODIPine [Norvasc] 5 mg PO QDAY 07/10/16 04/08/17 04/02/17 History levETIRAcetam [Keppra TAB] 500 mg PO BID 07/10/16 04/08/17 04/08/17 History ALPRAZolam [Xanax] 1 mg PO TID 04/08/17 04/08/17 Unknown History ED Physical Exam - General Limitations: No Limitations General appearance: alert, in no apparent distress - Head Head exam: Present: normocephalic - Eye Eye exam: Present: normal appearance - ENT ENT exam: Present: normal exam, normal orophraynx, mucous membranes moist - Neck Neck exam: Present: normal inspection, full ROM. Absent: tenderness, meningismus, lymphadenopathy, thyromegaly - Respiratory Respiratory exam: Present: decreased breath sounds. Absent: respiratory distress, wheezes, rales, rhonchi, stridor, accessory muscle use, prolonged expiratory - Cardiovascular Cardiovascular Exam: Present: regular rate, normal rhythm, normal heart sounds - GI/Abdominal GI/Abdominal exam: Present: soft, normal bowel sounds. Absent: distended, tenderness, guarding, rebound, rigid, organomegaly, mass, bruit, pulsatile mass , hernia - Extremities Exam Extremities exam: Present: normal inspection, full ROM, normal capillary refill - Back Exam Back exam: Present: normal inspection, full ROM. Absent: tenderness, CVA tenderness (R), CVA tenderness (L) - Neurological Exam Neurological exam: Present: alert, oriented X3, CN II-XII intact, normal gait - Skin Skin exam: Present: warm, intact, normal color ED Course Vital Signs 04/14/17 04/14/17 04/14/17 10:10 14:36 14:46 Temperature 97.2 F L Pulse Rate 85 87 88 Respiratory 18 18 28 H Rate Blood Pressure 112/81 Blood Pressure [Left] O2 Sat by Pulse 96 94 93 Oximetry 04/14/17 04/14/17 04/14/17 14:54 15:00 15:16 Temperature Pulse Rate 86 85 Respiratory 18 19 19 Rate Blood Pressure Blood Pressure [Left] O2 Sat by Pulse 98 94 91 Oximetry 04/14/17 04/14/17 04/14/17 15:30 15:49 15:56 Temperature 97.6 F Pulse Rate 98 H 88 Respiratory 21 18 Rate Blood Pressure Blood Pressure 143/90 [Left] O2 Sat by Pulse 96 92 94 Oximetry 04/14/17 16:00 Temperature Pulse Rate Respiratory Rate Blood Pressure 150/98 Blood Pressure [Left] O2 Sat by Pulse 93 Oximetry - Reevaluation(s) Reevaluation #1: 04/14/17 16:30 Dr. Velazquez is at bedside examining the patient. He stated that patient can be discharged home and follow-up with him in the office. ED Medical Decision Making - Lab Data Result diagrams: 04/14/17 10:25 04/14/17 10:38 Critical care attestation.: If time is entered above; I have spent that time in minutes in the direct care of this critically ill patient, excluding procedure time. ED Disposition Clinical Impression: Shortness of breath Disposition: DC-01 TO HOME OR SELFCARE Is pt being admited?: No Condition: Stable Instructions: Dyspnea (ED) Referrals: MONROE VELAZQUEZ MD [Staff Physician] - 3-5 Days
[2017-04-14 16:40] VITALS: BP 150/98
== END 2017-04-14 16:55 | disposition home or self-care (01) ==
LOC: ED 09:59
DX: R06.02 Shortness of breath (principal); R07.9 Chest pain, unspecified; R53.1 Weakness; I11.0 Hypertensive heart disease with heart failure; I50.9 Heart failure, unspecified; E11.9 Type 2 diabetes mellitus without complications; K21.9 Gastro-esophageal reflux disease without esophagitis; M19.90 Unspecified osteoarthritis, unspecified site; F41.9 Anxiety disorder, unspecified; G89.29 Other chronic pain; E78.00 Pure hypercholesterolemia, unspecified; Z90.49 Acquired absence of other specified parts of digestive tract; Z90.710 Acquired absence of both cervix and uterus; Z86.73 Personal history of transient ischemic attack (TIA), and cerebral infarction without residual deficits; Z86.718 Personal history of other venous thrombosis and embolism
CPT/HCPCS: 36415; 71046; 80048; 83880; 84484; 85025; 85610; 85730; 93005; 93010; 99284

== ENCOUNTER 2017-04-17 09:20 | Emergency (ER) | payer OTHER ==
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
[2017-04-17] MEDS ORDERED: NORCO 5/325 PO ONE (12:21)
[2017-04-17] MEDS ORDERED: FLEXERIL PO ONE (12:21)
--- NOTE | 2017-04-17 13:41 | XRay Report ---
LUMBOSACRAL SPINE, 3 VIEWS: History: Back pain Findings: Mild osteopenia is suspected. No evidence for compression deformity or malalignment. Moderate degenerative changes are noted at L4-5 and L5-S1. Mild symmetric degenerative changes in the SI joints. Impression: Lumbar spondylosis. No acute injury is identified on x-ray.
--- NOTE | 2017-04-17 13:42 | XRay Report ---
CERVICAL SPINE, 3 views: History: Neck pain. Findings: The vertebral bodies, disk spaces, posterior elements and prevertebral soft tissues are intact. The dens is intact. No acute fracture or malalignment is identified. Mild degenerative disc disease is noted at C5-6 and C6-7. Impression: Mild cervical spondylosis. No evidence for acute injury to the cervical spine.
[2017-04-17 14:29] VITALS: BP 130/78
== END 2017-04-17 14:56 | disposition home or self-care (01) ==
LOC: ED 09:20
DX: M50.30 Other cervical disc degeneration, unspecified cervical region (principal); M51.36 Other intervertebral disc degeneration, lumbar region; M79.1 Myalgia; I11.0 Hypertensive heart disease with heart failure; I50.9 Heart failure, unspecified; I69.354 Hemiplegia and hemiparesis following cerebral infarction affecting left non-dominant side; E11.9 Type 2 diabetes mellitus without complications; K21.9 Gastro-esophageal reflux disease without esophagitis; M19.90 Unspecified osteoarthritis, unspecified site; F41.9 Anxiety disorder, unspecified; E78.00 Pure hypercholesterolemia, unspecified; Z86.73 Personal history of transient ischemic attack (TIA), and cerebral infarction without residual deficits; Z90.710 Acquired absence of both cervix and uterus; V89.2XXA Person injured in unspecified motor-vehicle accident, traffic, initial encounter; Y93.89 Activity, other specified; Y92.89 Other specified places as the place of occurrence of the external cause; Y99.8 Other external cause status
CPT/HCPCS: 72040; 72100; 99283

== ENCOUNTER 2017-04-22 08:54 | Emergency (ER) | payer OTHER ==
[2017-04-22 09:41] VITALS: BP 114/80
[2017-04-22 10:06] LABS: Basophils % (Auto) 0.2 % (0.0-1.8); Hematocrit 37.7 % (30.3-42.9); Hemoglobin 11.9 gm/dl (10.1-14.3); Lymphocytes # (Auto) 1.7 K/mm3 (1.2-5.4); Mean Corpuscular HGB Conc 32 % (30-34); Mean Corpuscular Volume 79 fl (79-97); Monocytes % (Auto) 9.1 % (0.0-7.3); Platelet Count 123 K/mm3 (140-440); Red Blood Count 4.75 M/mm3 (3.65-5.03); Red Cell Distribution Width 13.7 % (13.2-15.2)
[2017-04-22 10:11] LABS: Mean Corpuscular Hemoglobin 25 pg (28-32)
[2017-04-22 10:24] LABS: BUN/Creatinine Ratio 26; Blood Urea Nitrogen 21 mg/dL (7-17); Calcium 8.3 mg/dL (8.4-10.2); Hemolysis Index 29
--- NOTE | 2017-04-22 10:41 | Emergency Department Report ---
- General Chief complaint: Weakness Stated complaint: UNSTEADY GAIT/DEPRESSION Time Seen by Provider: 04/22/17 10:11 Source: patient, EMS Mode of arrival: Stretcher Limitations: No Limitations - History of Present Illness Initial comments: 61-year-old female says she has history of stroke is worried that she might be having another stroke, patient states she's had an left side weakness previouls , but has been having some l side neck pain, per nurses, ems was called by a "friend" for possible norco and ambien od, pill bottles found on floor patient arrives awake and alert and oriented 3 without somnolence stating that she is worried about being weak all over worried about a stroke complaining of left- sided neck pain denies SI denies HI denies overdose, appears baseline ms, with capacity MD Complaint: generalized weakness, lack of energy -: days(s), week(s), unknown Location: generalized Severity scale (0 -10): 0 Quality: tingling Consistency: intermittent Associated Symptoms: denies other symptoms. denies: chest pain, confusion, dark stools, diaphoresis, dysuria, easy bruising, fever/chills, headaches, loss of appetite, nausea/vomiting, myalgias, rash, shortness of breath, syncope - Related Data Home Medications Medication Instructions Recorded Confirmed Last Taken AtorvaSTATin [Lipitor] 40 mg PO QDAY 07/10/16 04/08/17 04/08/17 Docusate Sodium [Colace CAP] 100 mg PO BID PRN 07/10/16 04/08/17 Unknown Warfarin [Coumadin] 5 mg PO DAILY 07/10/16 04/08/17 04/08/17 amLODIPine [Norvasc] 5 mg PO QDAY 07/10/16 04/08/17 04/02/17 levETIRAcetam [Keppra TAB] 500 mg PO BID 07/10/16 04/08/17 04/08/17 ALPRAZolam [Xanax] 1 mg PO TID 04/08/17 04/08/17 Unknown Previous Rx's Medication Instructions Recorded Last Taken Type Zolpidem Tartrate [Ambien] 10 mg PO QHS #15 tablet NS 05/06/14 Unknown Rx Cyclobenzaprine HCl [Flexeril 5 MG 5 mg PO TID PRN #12 tablet 04/17/17 Unknown Rx TAB] Ibuprofen [Motrin] 600 mg PO Q8H PRN #12 tablet 04/17/17 Unknown Rx Allergies Allergy/AdvReac Type Severity Reaction Status Date / Time No Known Allergies Allergy Verified 04/22/17 11:52 ED Review of Systems ROS: Stated complaint: UNSTEADY GAIT/DEPRESSION Other details as noted in HPI Comment: All other systems reviewed and negative Constitutional: denies: diaphoresis, fever, malaise ENT: denies: dental pain, hearing loss, epistaxis Respiratory: denies: shortness of breath, SOB with exertion, SOB at rest, stridor Cardiovascular: denies: chest pain, dyspnea on exertion, orthopnea, edema, syncope, paroxysmal nocturnal dyspnea Gastrointestinal: denies: abdominal pain, nausea, vomiting, diarrhea, constipation, hematemesis, melena, hematochezia Genitourinary: denies: frequency, hematuria, abnormal menses, dyspareunia Musculoskeletal: denies: joint swelling, arthralgia, myalgia Neurological: numbness. denies: headache, paresthesias, confusion, abnormal gait, vertigo ED Past Medical Hx - Past Medical History Previous Medical History?: Yes Hx Hypertension: Yes Hx CVA: Yes (left side weakness per pt) Hx Congestive Heart Failure: Yes Hx Diabetes: Yes Hx Deep Vein Thrombosis: Yes (Unknown) Hx GERD: Yes Hx Arthritis: Yes Hx Seizures: Yes Hx Kidney Stones: Yes Hx Psychiatric Treatment: Yes (ANXIETY) Hx Asthma: No Additional medical history: Hypercholesterolemia. chronic knee pain - Surgical History Past Surgical History?: Yes Hx Appendectomy: Yes Additional Surgical History: hysterectomy. - Social History Smoking Status: Never Smoker - Medications Home Medications: Home Medications Medication Instructions Recorded Confirmed Last Taken Type Zolpidem Tartrate [Ambien] 10 mg PO QHS #15 tablet NS 05/06/14 04/08/17 Unknown Rx AtorvaSTATin [Lipitor] 40 mg PO QDAY 07/10/16 04/08/17 04/08/17 History Docusate Sodium [Colace CAP] 100 mg PO BID PRN 07/10/16 04/08/17 Unknown History Warfarin [Coumadin] 5 mg PO DAILY 07/10/16 04/08/17 04/08/17 History amLODIPine [Norvasc] 5 mg PO QDAY 05/04/08/17 04/02/17 History levETIRAcetam [Keppra TAB] 500 mg PO BID 07/10/16 04/08/17 04/08/17 History ALPRAZolam [Xanax] 1 mg PO TID 04/08/17 04/08/17 Unknown History Cyclobenzaprine HCl [Flexeril 5 MG 5 mg PO TID PRN #12 tablet 04/17/17 Unknown Rx TAB] Ibuprofen [Motrin] 600 mg PO Q8H PRN #12 tablet 04/17/17 Unknown Rx ED Physical Exam - General Limitations: No Limitations General appearance: alert, in no apparent distress, anxious - Head Head exam: Present: atraumatic, normocephalic - Eye Eye exam: Present: PERRL, EOMI - ENT ENT exam: Present: normal exam, normal orophraynx - Neck Neck exam: Present: normal inspection. Absent: tenderness, meningismus - Respiratory Respiratory exam: Present: respiratory distress, wheezes, rhonchi, prolonged expiratory. Absent: stridor, chest wall tenderness - Cardiovascular Cardiovascular Exam: Present: regular rate, normal rhythm, normal heart sounds - GI/Abdominal GI/Abdominal exam: Present: soft. Absent: tenderness, guarding, rebound, rigid , mass, bruit, pulsatile mass - Extremities Exam Extremities exam: Absent: joint swelling, calf tenderness - Back Exam Back exam: Present: normal inspection. Absent: CVA tenderness (R), CVA tenderness (L), muscle spasm, paraspinal tenderness, vertebral tenderness - Psychiatric Psychiatric exam: Present: normal affect - Level of Consciousness 1a. Level of Consciousness: alert - LOC Questions 1b. LOC Questions: answers correctly - LOC Command 1c. LOC Commands: performs tasks correctly - Best Gaze 2. Best Gaze: normal - Visual 3. Visual: no visual loss - Facial Palsy 4. Facial Palsy: normal symmetrical movement - Motor Arm 5b. Motor Arm Right: some gravity effort 5a. Motor Arm Left: no drift - Motor Leg 6a. Motor Leg Left: some gravity effort 6b. Motor Leg Right: some gravity effort - Limb Ataxia 7. Limb Ataxia: absent - Sensory 8. Sensory: normal - Best Language 9. Best Language: no aphasia - Dysarthria 10. Dysarthria: normal - Extinction and Inattention 11. Extinction/Inattention: no abnormality (old cva) - Scoring Total Score: 6 Stroke Severity: Moderate Stroke ED Course Vital Signs 04/22/17 09:35 Temperature 99.1 F Pulse Rate 66 Blood Pressure 114/80 O2 Sat by Pulse 94 Oximetry - Reevaluation(s) Reevaluation #1: 04/22/17 14:39 Test for further evaluation weakness as well as patient felt like she might be having new neurologic symptoms with history of old CVA patient refused IV access she did refuse CT scanning ED Medical Decision Making - Lab Data Result diagrams: 04/22/17 09:51 04/22/17 09:51 - EKG Data -: EKG Interpreted by Ar EKG shows normal: sinus rhythm - EKG Data Interpretation: no acute changes, nonspecific ST-T wave rylan - Radiology Data Radiology results: report reviewed - Medical Decision Making Patient was being evaluated for possible CVA noncontrast head CT shows chronic changes including O right-sided CVA, initially his symptoms patient was having today we did consider a CT angiogram she refuses IV access she was informed of risks including missed stroke disability and she did sign out AMA she refused further workup. She was given breathing treatments she was alert and oriented 3 not intoxicated with capacity for decision making and therefore signed out AMA she was informed to return immediately for alarming symptoms or see her regular doctor Critical care attestation.: If time is entered above; I have spent that time in minutes in the direct care of this critically ill patient, excluding procedure time. ED Disposition Clinical Impression: Acute asthma, Numbness Disposition: DC-07 LEFT AGAINST MED ADVICE Is pt being admited?: No Condition: Stable Instructions: Asthma (ED) Referrals: PRIMARY CAREMD [Primary Care Provider] - 3-5 Days Time of Disposition: 14:20
[2017-04-22] MEDS ORDERED: DUONEB *Not for PRN Use IH ONE (10:44)
--- NOTE | 2017-04-22 10:51 | XRay Report ---
AP CHEST: HISTORY: Shortness of breath AP view of the chest demonstrates a normal mediastinal and cardiac contour with clear lungs and normal bony and soft tissue structures. IMPRESSION: No acute cardiopulmonary process identified.
--- NOTE | 2017-04-22 11:13 | Cat Scan Report ---
CT HEAD WITHOUT CONTRAST: HISTORY: Weakness. TECHNIQUE: Sequential CT images without contrast. FINDINGS: Images obtained show bilateral prominence of the sulci and ventricles. There are no abnormal intra- or extra-axial blood or fluid collections. There are no focal masses or evidence of mass effect. The boyce white matter differentiation appears within normal limits. Regions of periventricular decreased attenuation are consistent with microangiopathic ischemic disease. Focal chronic cortical infarcts are identified in the right posterior frontal lobe and right posterior temporal lobe which are unchanged since 04/08/17. The posterior fossa structures including the fourth ventricle, cerebellum, and brainstem appear normal. IMPRESSION: Volume loss and chronic white matter changes. Chronic cortical infarcts in the right posterior frontal lobe and right posterior temporal lobe. No acute intracranial process. No significant change since 04/08/17.
[2017-04-22] MEDS ORDERED: TYLENOL ONE (11:44)
[2017-04-22] MEDS ORDERED: PROVENTIL IH ONE (12:29)
[2017-04-22] MEDS ORDERED: ATROVENT IH ONE (12:30)
[2017-04-22 12:57] LABS: Bilirubin,Urine NEG (Negative); Blood,Urine SM (Negative); Color,Urine Red (Yellow); Protein,Urine <15 mg/dL mg/dL (Negative); RBC,Urine < 1.0 /HPF (0.0-6.0); Urobilinogen,Urine < 2.0 mg/dL (<2.0); WBC,Urine < 1.0 /HPF (0.0-6.0)
[2017-04-22 13:14] LABS: Amphetamine Screen,Urine PRESUMPTIVE NEGATIVE; Benzodiazepines Screen,Urine PRESUMPTIVE NEGATIVE; Cannabinoid Screen,Urine PRESUMPTIVE NEGATIVE; Cocaine Screen,Urine PRESUMPTIVE NEGATIVE; Methadone Screen,Urine PRESUMPTIVE NEGATIVE; Opiate Screen,Urine PRESUMPTIVE NEGATIVE
== END 2017-04-22 14:00 | disposition left against medical advice (07) ==
LOC: ED 08:54
DX: J45.901 Unspecified asthma with (acute) exacerbation (principal); I11.0 Hypertensive heart disease with heart failure; I50.9 Heart failure, unspecified; K21.9 Gastro-esophageal reflux disease without esophagitis; M19.90 Unspecified osteoarthritis, unspecified site; Z86.73 Personal history of transient ischemic attack (TIA), and cerebral infarction without residual deficits; Z79.01 Long term (current) use of anticoagulants
CPT/HCPCS: 36415; 70450; 71045; 80048; 80307; 81001; 85025; 93005; 93010; 94640; 96372; 99285; G0480; J2930; 80320

== ENCOUNTER 2020-07-14 06:23 | Emergency (ER) | payer MEDICARE ==
[2020-07-14] MEDS ORDERED: ASPIRIN 325 MG TAB PO ONE (06:28)
--- NOTE | 2020-07-14 07:05 | XRay Report ---
CHEST PA AND LATERAL VIEWS INDICATION: SOB, chest pain. COMPARISON: 04/22/2017 FINDINGS: Support devices: None Heart: Normal and unchanged Lungs/Pleura: No acute pulmonary or pleural findings. IMPRESSION: 1. No active disease. Signer Name: Veto Boggs MD Signed: 07/14/2020 7:00 AM Workstation Name: [id number]
[2020-07-14 07:39] LABS: Basophils # (Auto) 0.1 K/mm3 (0.0-0.1); Basophils % (Auto) 0.5 % (0.0-1.8); Eosinophils # (Auto) 0.2 K/mm3 (0.0-0.4); Eosinophils % (Auto) 2.2 % (0.0-4.3); Lymphocytes # (Auto) 2.1 K/mm3 (1.2-5.4); Lymphocytes % (Auto) 19.1 % (13.4-35.0); Mean Corpuscular HGB Conc 33 % (30-34); Mean Corpuscular Volume 84 fl (79-97); Monocytes # (Auto) 1.1 K/mm3 (0.0-0.8); Monocytes % (Auto) 9.7 % (0.0-7.3); Platelet Count 145 K/mm3 (140-440); Red Blood Count 4.76 M/mm3 (3.65-5.03); Red Cell Distribution Width 14.3 % (13.2-15.2)
[2020-07-14 08:05] LABS: Alanine Aminotransferase 31 units/L (7-56); Albumin 4.3 g/dL (3.9-5); BUN/Creatinine Ratio 19; Blood Urea Nitrogen 19 mg/dL (7-17); Calcium 9.8 mg/dL (8.4-10.2); Hemolysis Index 0
[2020-07-14] MEDS ORDERED: FUROSEMIDE 40 MG/4 ML INJ IV ONE (11:30)
--- NOTE | 2020-07-14 11:38 | Emergency Department Report ---
ED Chest Pain HPI - General Chief Complaint: Chest Pain Stated Complaint: CHEST PAIN Time Seen by Provider: 07/14/20 11:29 Source: patient, family, EMS Mode of arrival: Wheelchair Limitations: No Limitations - History of Present Illness Initial Comments: Chief complaint: "My chest is hurting. My breathing is hard when I lay down." HPI: This is a 64-year-old male with diastolic heart failure, diabetes mellitus, DVT, CVA, GERD, anxiety who presents with several days of stabbing chest pain and shortness of breath. Patient has a stabbing chest pain when she lays flat. She states that the pain is located behind her heart. She also has shortness of breath with laying flat. She does not have any chest pain or shortness of breath at this time. She missed her cardiology appointment with Dr. Villalobos 2 days ago scheduled for July 12 because she had more seizures than normal. She spoke with her neurologist per phone who doubled her dose of antiepileptic medication. Patient is on warfarin therapy. She is on seizure medications. She is also takes furosemide. According to echocardiogram performed 04/08/2007, patient has left ventricular systolic function intact with ejection fraction 50 to 55% abnormal left ventricular diastolic filling observed with impaired relaxation February 08, 2014: Patient underwent normal Lexiscan, normal nuclear perfusion myocardial study PCP Dr. David Mcpherson Son [phone] Mr. Mary ALAMO Complaint: chest pain, other (Shortness of breath) -: Gradual, days(s) (Several days ago) Onset: during rest, other (When lying flat) Pain Location: substernal ("Behind my heart") Pain Radiation: none Severity: mild Quality: other (Stabbing) Consistency: now resolved Improves With: other (Sitting up) Worsens With: other (Laying flat) re: dyspnea Treatments Prior to Arrival: none - Related Data Home Medications Medication Instructions Recorded Confirmed Last Taken AtorvaSTATin [Lipitor] 40 mg PO QDAY 07/10/16 04/08/17 04/08/17 Docusate Sodium [Colace CAP] 100 mg PO BID PRN 07/10/16 04/08/17 Unknown Warfarin [Coumadin] 5 mg PO DAILY 07/10/16 04/08/17 04/08/17 amLODIPine 5 mg PO QDAY 07/10/16 04/08/17 04/02/17 levETIRAcetam [Keppra TAB] 500 mg PO BID 07/10/16 04/08/17 04/08/17 ALPRAZolam [Xanax] 1 mg PO TID 04/08/17 04/08/17 Unknown Previous Rx's Medication Instructions Recorded Last Taken Type Zolpidem Tartrate [Ambien] 10 mg PO QHS #15 tablet NS 05/06/14 Unknown Rx Cyclobenzaprine HCl [Flexeril 5 MG 5 mg PO TID PRN #12 tablet 04/17/17 Unknown Rx TAB] Ibuprofen [Motrin] 600 mg PO Q8H PRN #12 tablet 04/17/17 Unknown Rx Allergies Allergy/AdvReac Type Severity Reaction Status Date / Time No Known Allergies Allergy Verified 04/22/17 11:52 Heart Score - HEART Score History: Slightly suspicious EKG: Normal Age: > 65 Risk factors: 1-2 risk factors Troponin: < normal limit HEART Score: 3 - EKG Read Time Time EKG Completed: 06:36 EKG Read Time: 06:40 ED Review of Systems ROS: Stated complaint: CHEST PAIN Other details as noted in HPI Comment: All other systems reviewed and negative Constitutional: denies: fever, malaise Respiratory: shortness of breath. denies: cough Cardiovascular: chest pain Gastrointestinal: denies: abdominal pain, nausea, vomiting Neurological: denies: headache ED Past Medical Hx - Past Medical History Previous Medical History?: Yes Hx Hypertension: Yes Hx CVA: Yes (left side weakness per pt) Hx Congestive Heart Failure: Yes Hx Diabetes: Yes Hx Deep Vein Thrombosis: Yes (Unknown) Hx GERD: Yes Hx Arthritis: Yes Hx Seizures: Yes Hx Kidney Stones: Yes Hx Psychiatric Treatment: Yes (ANXIETY) Hx Asthma: No Additional medical history: Hypercholesterolemia. chronic knee pain - Surgical History Past Surgical History?: Yes Hx Appendectomy: Yes Additional Surgical History: hysterectomy. - Social History Smoking Status: Never Smoker - Medications Home Medications: Home Medications Medication Instructions Recorded Confirmed Last Taken Type Zolpidem Tartrate [Ambien] 10 mg PO QHS #15 tablet NS 05/06/14 04/08/17 Unknown Rx AtorvaSTATin [Lipitor] 40 mg PO QDAY 07/10/16 04/08/17 04/08/17 History Docusate Sodium [Colace CAP] 100 mg PO BID PRN 07/10/16 04/08/17 Unknown History Warfarin [Coumadin] 5 mg PO DAILY 07/10/16 04/08/17 04/08/17 History amLODIPine 5 mg PO QDAY 07/10/16 04/08/17 04/02/17 History levETIRAcetam [Keppra TAB] 500 mg PO BID 07/10/16 04/08/17 04/08/17 History ALPRAZolam [Xanax] 1 mg PO TID 04/08/17 04/08/17 Unknown History Cyclobenzaprine HCl [Flexeril 5 MG 5 mg PO TID PRN #12 tablet 04/17/17 Unknown Rx TAB] Ibuprofen [Motrin] 600 mg PO Q8H PRN #12 tablet 04/17/17 Unknown Rx ED Physical Exam - General Limitations: No Limitations General appearance: alert, in no apparent distress, other (Pleasant talkative appears comfortable) - Head Head exam: Present: atraumatic, normocephalic - Eye Eye exam: Present: normal appearance - ENT ENT exam: Present: mucous membranes moist - Neck Neck exam: Present: normal inspection, full ROM - Respiratory Respiratory exam: Present: normal lung sounds bilaterally. Absent: respiratory distress, wheezes, rales, rhonchi - Cardiovascular Cardiovascular Exam: Present: regular rate, normal rhythm, normal heart sounds. Absent: systolic murmur, diastolic murmur, rubs, gallop - GI/Abdominal GI/Abdominal exam: Present: soft, normal bowel sounds. Absent: distended, tenderness, guarding, rebound - Extremities Exam Extremities exam: Present: normal inspection - Neurological Exam Neurological exam: Present: alert, oriented X3 - Psychiatric Psychiatric exam: Present: normal affect, normal mood - Skin Skin exam: Present: warm, dry, intact, normal color. Absent: rash ED Course Vital Signs 07/14/20 07/14/20 07/14/20 06:29 11:52 12:00 Temperature 97.9 F Pulse Rate 78 79 79 Respiratory 18 19 18 Rate Blood Pressure 114/73 106/59 Blood Pressure [Left] O2 Sat by Pulse 98 95 Oximetry 07/14/20 12:27 Temperature Pulse Rate 82 Respiratory 18 Rate Blood Pressure Blood Pressure 100/61 [Left] O2 Sat by Pulse 99 Oximetry PHIL score - Phil Score Age > 65: (0) No Aspirin use within the Past 7 Days: (0) No 3 or more CAD Risk Factors: (1) Yes 2 or more Angina events in past 24 hrs: (0) No Known CAD with more than 50% Stenosis: (0) No Elevated Cardiac Markers: (0) No ST Deviation Greater than 0.5mm: (0) No PHIL Score: 1 ED Medical Decision Making - Lab Data Result diagrams: 07/14/20 06:57 07/14/20 06:57 Laboratory Results - last 24 hr 07/14/20 07/14/20 07/14/20 06:57 06:57 09:57 WBC 10.9 RBC 4.76 Hgb 13.0 Hct 40.0 MCV 84 MCH 27 L MCHC 33 RDW 14.3 Plt Count 145 Lymph % (Auto) 19.1 [place] % (Auto) 9.7 H Eos % (Auto) 2.2 Baso % (Auto) 0.5 Lymph # (Auto) 2.1 [place] # (Auto) 1.1 H Eos # (Auto) 0.2 Baso # (Auto) 0.1 Seg Neutrophils % 68.5 Seg Neutrophils # 7.5 Sodium 139 Potassium 3.6 Chloride 100.4 Carbon Dioxide 25 Anion Gap 17 BUN 19 H Creatinine 1.0 Estimated GFR > 60 BUN/Creatinine Ratio 19 Glucose 87 Calcium 9.8 Total Bilirubin 0.30 AST 40 ALT 31 Alkaline Phosphatase 67 Troponin T < 0.010 < 0.010 Total Protein 7.7 Albumin 4.3 Albumin/Globulin Ratio 1.3 - EKG Data -: EKG Interpreted by Pr EKG shows normal: sinus rhythm, axis, intervals, QRS complexes, ST-T waves Rate: normal - EKG Data Interpretation: normal EKG 07/14/20 11:37 EKG obtained 0636 EKG interpreted by mt Normal sinus rhythm normal rate normal axis normal intervals no ST elevation no ST-T signs of ischemia normal EKG rate 75 bpm - Radiology Data Radiology results: report reviewed Patient Name: CHIRAG MARTÍNEZ Gender: Female Date of : 1955 Referring Provider: DOC, ED Organization: [facility] Accession Number: [id number] Requested Date: July 14, 2020 06:28 Report Status: Final Requested Procedure: 1 Procedure Description: XR chest routine 2V Modality: XR Findings Reporting MD: Veto Boggs Dictation Time: July 14, 2020 06:00 Dairy Lab 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 COMPARISON: 04/22/2017 FINDINGS: Support devices: None Heart: Normal and unchanged Lungs/Pleura: No acute pulmonary or pleural findings. IMPRESSION: 1. No active disease. Signer Name: Veto Boggs MD Signed: 07/14/2020 6:00 AM Workstation Name: [id number] - Medical Decision Making 1. Chest pain atypical for ACS. No indication of emergent causes such as pulmonary embolism, dissection. Chest radiograph normal essentially ruling out pneumothorax and pneumonia. I suspect GERD and component of anxiety. Patient does not have pulmonary edema on chest radiograph. Acute myocardial infarction ruled out with 2 assays of troponin both negative. I do not suspect acute coronary syndrome. 2. Shortness of breath: Possible component of diastolic heart failure, patient states that she is compliant with medication. No indication of life-threatening condition. No pulmonary edema. Patient has subtherapeutic INR. She was encouraged to continue her warfarin therapy. Patient is discharged home. Patient received IV furosemide for treatment. Critical care attestation.: If time is entered above; I have spent that time in minutes in the direct care of this critically ill patient, excluding procedure time. ED Disposition Clinical Impression: GERD (gastroesophageal reflux disease), Chronic diastolic CHF (congestive heart failure), Subtherapeutic international normalized ratio (INR) Disposition: -01 TO HOME OR SELFCARE Is pt being admited?: No Does the pt Need Aspirin: No Condition: Stable Instructions: Gastroesophageal Reflux Disease, Adult, Nowv-as-Glpt, Heart Failure, Self Care Referrals: GRAY VILLALOBOS MD [Staff Physician] - 3-5 Days DAVID MCPHERSON III, APRN-BC [Referring] - 3-5 Days
[2020-07-14] MEDS ORDERED: FUROSEMIDE 20 MG TAB PO ONE (11:46)
[2020-07-14] MEDS ORDERED: HYDROcodone/ACETAMINOPHEN 5-325 MG TAB PO ONE (11:46)
[2020-07-14 12:29] VITALS: BP 106/59
[2020-07-14 13:30] LABS: INR 0.99 (0.87-1.13)
--- NOTE | 2020-07-17 10:34 | Electrocardiograph Report ---
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
== END 2020-07-14 13:49 | disposition home or self-care (01) ==
LOC: EDBD 06:23 → ED 06:23
DX: I11.0 Hypertensive heart disease with heart failure (principal); I50.9 Heart failure, unspecified; K21.9 Gastro-esophageal reflux disease without esophagitis; R79.1 Abnormal coagulation profile; E11.9 Type 2 diabetes mellitus without complications; M19.90 Unspecified osteoarthritis, unspecified site; F41.9 Anxiety disorder, unspecified; E78.00 Pure hypercholesterolemia, unspecified; Z90.49 Acquired absence of other specified parts of digestive tract; Z90.710 Acquired absence of both cervix and uterus; Z79.899 Other long term (current) drug therapy; Z86.73 Personal history of transient ischemic attack (TIA), and cerebral infarction without residual deficits; Z98.890 Other specified postprocedural states
CPT/HCPCS: 36415; 71046; 80053; 84484; 85025; 85610; 93005

== ENCOUNTER 2021-08-25 10:49 | Emergency (ER) | payer MEDICARE | END 2021-08-25 19:19 | disposition left against medical advice (07) | LOC: ED 10:49 | DX: R07.9 Chest pain, unspecified (principal); Z53.21 Procedure and treatment not carried out due to patient leaving prior to being seen by health care provider ==